=== PATIENT | female | born 1970 | race Caucasian/White ===

== ENCOUNTER 2018-12-21 | Inpatient (IN) | payer MEDICARE ==
[2018-12-21] VITALS (95 sets, daily range): BP systolic 64–134; BP diastolic 40–101; BMI 19.0
[~2018-12-21] VITALS: Ht 167.6 cm; Wt 66.8 kg
--- NOTE | 2018-12-21 01:25 | NUR ---
PATIENT ARRIVED TO ICU ROOM 2302 VIA STRETCHER ACCOMPANIED BY EMS AT 0015. PATIENT TRANSFERRED TO ICU BED, ALL ICU MONITORING EQUIPMENT PLACED PER ICU PROTOCOL. IV LINES CONVERTED TO ONES THAT ARE COMPATIBLE WITH THIS HOSPITAL. CONINUE IVF OF PROPOFOL, VASSOPRESSIN AND LR (SEE IV FLOWSHEET). THIS PATIENT ARRIVED WITH LIPS THAT APPEAR TO BE SWOLLEN AND WHAT ALSO APPEARS TO BE PERIORTITAL EDEMA. AN OBLONG BLACKENED AREA WAS ALSO NOTED TO TOP OF RIGHT UPPER EXTREMITY THAT IS SWOLLEN, WARM TO THE TOUCH AND OBLONG IN NATURE. THIS NURSE IMMEDIATELY CALLED [facility] AND ASKED NURSE, ROBERT FONTAINE IF THE ABNORMALLY LARGE SIZE OF THIS PATIENT'S LIPS AND PERIORBITAL EDEMA WERE PRE-EXISTING/NORMAL FOR THIS PATIENT, TO CONFIRM THAT THIS CHANGE HAD NOT OCCURRED IN ROUTE. MINAL JONES, STATED THAT THIS WAS A PRE-EXISTING CONDITION FOR THIS PATIENT. THIS NURSE ALSO QUESTIONED THE BLACKENED AREA TO THE TOP OF THE RIGHT UPPER EXTREMITY. ROBERT FONTAINE, FROM [facility] ICU STATED THAT THE BLACKENED AREA WAS A PREVIOUS IV SITE. WHEN ASKED BY THIS NURSE IF SHE KNEW THE TYPE OF MEDICATION THAT HAD BEEN PREVIOUSLY INFUSING THROUGH IT, SHE STATED THAT SHE "THOUGHT" THAT IT WAS THE PREVIOUS LEVOPHED INFUSION SITE, PRIOR TO THIS PATIENT RECEIVING A CVL. ADMISSION ASSESSMENT COMPLETE PER NURSING FLOWSHEET.
[2018-12-21] MEDS ORDERED: LOVENOX40 MG/0.4 SC (02:56)
--- NOTE | 2018-12-21 03:00 | NUR ---
PATIENT REPOSITIONED, ORAL CARE PROVIDED, PATIENT CONTINUES TO BE SEDATED, ON VENTILATOR, WHICH IS HOW THIS PATIENT ARRIVED. CONTINUE POC
--- NOTE | 2018-12-21 05:00 | NUR ---
RE-ASSESSMENT COMPLETE, PER NURSING FLOWSHEET, PATIENT REPOSITIONED. REPOSITIONED SOFT FOAM COVERINGS TO PATIENT B/L BUTTOCK OVER OLD SCARS/SMALL SKIN TEAR. MEPILEX OVER COCCYX THAT WAS PLACED UPON THIS PATIENT'S ARRIVAL REMAINS IN PLACE, CONTINOUSLY MONITORING VS. LEVOPHED PREVIOUSLY INTIATED.
[2018-12-21 06:50] LABS: BASOPHILS 0 % (0-2); EOSINOPHILS 0.4 % (0-7); HEMATOCRIT 21.6 % (36.0-48.0); IMMATURE GRANULOCYTES 0.7 % (0-5); LYMPHOCYTES 12.3 % (15-50); MCH 32.9 pg (26.0-34.0); MCHC 33.3 g/dL (31.0-37.0); MCV 98.6 fL (80.0-100.0); MEAN PLATELET VOLUME 9.7 fL (7.4-10.4); MONOCYTES 5.8 % (2-11); NEUTROPHILS 80.8 % (40-80); PLATELET COUNT 148 10x3/uL (130-400); RBC 2.19 10x6/uL (4.00-5.40); RDW 15.2 % (11.5-14.5); WBC 6.7 10x3/uL (4.8-10.8)
[2018-12-21 06:52] LABS: ALBUMIN 1.9 g/dL (3.4-5.0); BILIRUBIN - TOTAL 0.35 mg/dL (0.2-1.3); CALCIUM 8.2 mg/dL (8.5-10.1); CARBON DIOXIDE 17.6 mmol/L (21.0-32.0); HEMOGLOBIN 7.2 g/dL (12-16); MAGNESIUM - SERUM 1.4 mg/dL (1.8-2.4); PROTEIN - SERUM 6.4 g/dL (6.4-8.2)
[2018-12-21 06:55] LABS: PHOSPHOROUS 1.4 mg/dL (2.5-4.9); POTASSIUM - SERUM 2.6 mmol/L (3.5-5.1)
[2018-12-21 06:57] LABS: APTT 30.5 SECONDS (22.8-39.4); INR 1.33 (0.85-1.17); PROTIME 15.9 SECONDS (11.6-15.0)
--- NOTE | 2018-12-21 07:00 | NUR ---
REC'D CARE OF PT. INCONTINENT OF STOOL. BATHED, LINEN CHANGED, AND PERICARE PERFORMED.
--- NOTE | 2018-12-21 08:30 | NUR ---
DR. ENCINAS CALLED, UPDATED TO THIS PATIENT STATUS UPON ARRIVAL, AND CARE RECEIVED, CRITICAL K+ AND PHOSPHOROUS LEVELS GIVEN, NEW ORDERS FOR ELECTROLYTE PROTOCOL REVEIVED, DAY SHIFT RN, ROSEMARIE, NOTIFIED OF NEW ORDER FOR ELECTROLYTE PROTOCOL.
--- NOTE | 2018-12-21 08:43 | NUR ---
PT. CAME TO US WITH A DICKERSON, RIGHT IJ CVL AND INTUBATED SO I DO NOT KNOW THE EXACT DATES THIS WAS DONE.
--- NOTE | 2018-12-21 09:15 | NUR ---
LEVOPHED HUNG AND INFUSING. NOTE NEW CONCENTRATION 8MG/250.
[2018-12-21] MEDS ORDERED: PHENOBARBI20 MG/5 ML (09:21)
[2018-12-21] MEDS ORDERED: PHENOBARBITAL30 MG IV (09:21)
[2018-12-21] MEDS ORDERED: PHENOBARBI20 MG/5 ML IV (09:22)
[2018-12-21] MEDS ORDERED: ZOSYN 3.3753.375 G1 IV (09:23)
[2018-12-21] MEDS ORDERED: PULMICORT0.5 MG/21 INH (09:26)
[2018-12-21] MEDS ORDERED: CEREFOLIN TAB1 TAB IM (09:26)
[2018-12-21] MEDS ORDERED: SOLU-CORTE100 MG/22 IV (09:27)
[2018-12-21] MEDS ORDERED: IPRAT-ALBUT 0.5-3 ML UPD (09:28)
[2018-12-21] MEDS ORDERED: PROTONIX FOR OR40 MG IV (09:29)
[2018-12-21] MEDS ORDERED: VANCOMYCIN 1 GM/1 G1 IV (09:32)
[2018-12-21] MEDS ORDERED: SOLU-MEDRO40 MG/1 M1 IV (09:34)
[2018-12-21] MEDS ORDERED: TYLENOL650 MG RC (09:37)
--- NOTE | 2018-12-21 09:53 | NUR ---
SHOWED DR. HAYNES THE RIGHT LOWER ARM LEVOPHED INFILTRATION SITE AND SHOWED BRIGHT CUTTER. WE RECEIVED THE PT. WITH THIS INJURY.
--- NOTE | 2018-12-21 10:27 | NUR ---
[facility] BY SALES EXPERT HOME THEATER.
--- NOTE | 2018-12-21 10:30 | NUR ---
OGT DROPPED PER DR. ENCINAS ORDER. PLACEMENT VERIFIED WITH SMALL AIR BOLUS AUSCULTATED OVER GASTRIC REGION.
--- NOTE | 2018-12-21 11:11 | NUR ---
VASOPRESSIN AND LEVOPHED BEING TITRATED TO EFFECT.
--- NOTE | 2018-12-21 11:15 | NUR ---
REASSESSMENT COMPLETED PER FLOW SHEET. NO ACUTE CHANGES.
--- NOTE | 2018-12-21 11:54 | NUR ---
LEVOPHED AND VASOPRESSIN BEING TITRTATED TO EFFECT
--- NOTE | 2018-12-21 13:00 | NUR ---
NO VISITORS. REMAINS SEDATED ON VENT.
--- NOTE | 2018-12-21 14:07 | NUR ---
ORDERS REC'D TO DC IVF AND TO ORDER SPUTUM CULTURE.
--- NOTE | 2018-12-21 14:35 | NUR ---
ORDERS REC'D FOR KCL ORAL SUSPENSION 40 MEQ ONE DOSE NOW AND REPEAT DOSE IN 2 HOURS.
--- NOTE | 2018-12-21 14:44 | NUR ---
SPOKE WITH DR. HAYNES ABOUT THIRD DOSE OF KCL DUE NOW PER PROTOCOL FROM K BEING TREATED THIS MORNING. GIVE IN ADDITION TO WHAT HE HAS ORDERED NOW.
--- NOTE | 2018-12-21 16:40 | NUR ---
DR. HAYNES AT BEDSIDE. INPUTTING JOHNNY IN LEFT RADIAL.
--- NOTE | 2018-12-21 17:27 | NUR ---
REMAINS SEDATED ON VENT. BP BEING SUPPORTED WITH LEVOPHED AND VASOPRESSIN. NO ACUTE CHANGES.
--- NOTE | 2018-12-21 19:13 | NUR ---
BEDSIDE SHIFT REPORT GIVEN BY DEPARTING RN. PT LAYING IN BED WITH EYES CLOSED. SEDATED ON VENT. SEE FLOWSHEET FOR DETAILS. ASSESSMENT COMPLETE. SAFETY MEASURES IN PLACE. CBIR.
--- NOTE | 2018-12-21 21:10 | NUR ---
REPOSITIONED FOR COMFORT. ORAL CARE PROVIDED. NO SS OF DISCOMFORT. SAFETY MEASURES IN PLACE. CBIR.
--- NOTE | 2018-12-21 23:08 | NUR ---
REASSESSMENT COMPLETE. PT ASLEEP SHOWING NO SS OF DISTRESS. WILL CONTINUE TO TO TITRATE DRIPS. REPOSITIONED AND ORAL CARE PROVIDED.
[2018-12-22] VITALS (79 sets, daily range): BP systolic 82–129; BP diastolic 48–597; Ht 167.6 cm; Wt 66.8 kg
--- NOTE | 2018-12-22 01:07 | NUR ---
INCONTINENT EPISODE. DARK BROWN LIQUID BM NOTED IN BED. PARTIAL BATH AND LINEN CHANGED. REPOSITIONED AND ORAL CARE PROVIDED.
--- NOTE | 2018-12-22 03:34 | NUR ---
VENT ALARMING FOR OCCLUSION. SUCTIONED LIGHT PINK THICK SECRETIONS. O2 SAT REMAINS ABOVE 95%. REASSESSMENT COMPLETE. NO CHANGES IN PT CONDITION. SAFETY MEASURES IN PLACE. CBIR.
[2018-12-22 04:54] LABS: BASOPHILS 0.2 % (0-2); EOSINOPHILS 4.3 % (0-7); HEMATOCRIT 23.4 % (36.0-48.0); IMMATURE GRANULOCYTES 0.9 % (0-5); LYMPHOCYTES 26.1 % (15-50); MCH 32.8 pg (26.0-34.0); MCHC 34.2 g/dL (31.0-37.0); MEAN PLATELET VOLUME 9.8 fL (7.4-10.4); MONOCYTES 12.3 % (2-11); NEUTROPHILS 56.2 % (40-80); RBC 2.44 10x6/uL (4.00-5.40); RDW 15.1 % (11.5-14.5); WBC 5.5 10x3/uL (4.8-10.8)
[2018-12-22 04:57] LABS: MCV 95.9 fL (80.0-100.0); PLATELET COUNT 179 10x3/uL (130-400)
[2018-12-22 05:13] LABS: ALBUMIN 1.9 g/dL (3.4-5.0); BILIRUBIN - TOTAL 0.42 mg/dL (0.2-1.3); CALCIUM 8.1 mg/dL (8.5-10.1); CARBON DIOXIDE 20.6 mmol/L (21.0-32.0); PROTEIN - SERUM 6.9 g/dL (6.4-8.2)
[2018-12-22 05:19] LABS: ANION GAP 15.7 mmol/L (8-16); POTASSIUM - SERUM 3.3 mmol/L (3.5-5.1)
--- NOTE | 2018-12-22 09:10 | NUR ---
PT TURNED AND MOUTH CARE COMPLETE. LEVOPHED TITRATED TO 9MCG.MIN. VSS.
--- NOTE | 2018-12-22 10:37 | NUR ---
Wound Care spoke with ROBERT Tenorioheavy equipment sales manager at 0937 on 12/21/18 in reference to IV infiltration site on right forearm. Pt was transferred from another hospital to [facility] ICU with the area on right forearm swollen, warm to the touch and discolored black. Pictures were taken of the site. Upon wound care assessment on 12/22/18, it is noted that the area is discolored black, with small open tears revealing pink/pale tissue. The area was marked with black dots upon her admission yesterday. There is no change in the size of the area that has been marked. The entire site measures 22cm x 8cm. It is warm to the touch and edematous. Also noted upon arrival/admission scarring on bilateral buttocks with skin tears. Mepilex is protecting this area. Wound care continues to monitor.
[2018-12-23] VITALS (93 sets, daily range): BP systolic 63–120; BP diastolic 28–80
[2018-12-23 04:40] LABS: BASOPHILS 0.2 % (0-2); EOSINOPHILS 5.8 % (0-7); HEMATOCRIT 24.6 % (36.0-48.0); HEMOGLOBIN 8.4 g/dL (12-16); MCH 32.7 pg (26.0-34.0); MCHC 34.1 g/dL (31.0-37.0); MCV 95.7 fL (80.0-100.0); MEAN PLATELET VOLUME 9.8 fL (7.4-10.4); MONOCYTES 9.1 % (2-11); NEUTROPHILS 64.9 % (40-80); PLATELET COUNT 211 10x3/uL (130-400); RBC 2.57 10x6/uL (4.00-5.40); RDW 14.7 % (11.5-14.5)
[2018-12-23 05:05] LABS: ALBUMIN 1.5 g/dL (3.4-5.0); BILIRUBIN - TOTAL 0.33 mg/dL (0.2-1.3); CALCIUM 7.1 mg/dL (8.5-10.1); CARBON DIOXIDE 22.6 mmol/L (21.0-32.0); CREATININE - SERUM 0.9 mg/dL (0.6-1.3); MAGNESIUM - SERUM 1.1 mg/dL (1.8-2.4); PROTEIN - SERUM 5.9 g/dL (6.4-8.2)
[2018-12-23 05:07] LABS: ANION GAP 13.2 mmol/L (8-16); PHOSPHOROUS 1.4 mg/dL (2.5-4.9); POTASSIUM - SERUM 2.8 mmol/L (3.5-5.1)
--- NOTE | 2018-12-23 09:54 | NUR ---
PT TURNED AND MOUTH CARE COMPLETE. LEVOPHED TITRATED TO 8MCG/MIN. VSS. FAMILY HERE THIS AM AND UPDATE GIVEN.
--- NOTE | 2018-12-23 10:45 | EC ---
PATIENT:BILL OWUSU DATE OF SERVICE: 12/21/18 SEX: F MEDICAL RECORD: [id number] DATE OF : 70 LOCATION:[facility] D.230 AGE OF PATIENT: 48 ADMISSION DATE: 12/21/18 REFERRING PHYSICIAN: INTERPRETING PHYSICIAN: CARITO ROLDAN MD ECHOCARDIOGRAM REPORT ECHO CHARGES 4 ECHO COMPLETE Date: 12/22/18 CLINICAL DIAGNOSIS: SOB ECHOCARDIOGRAPHIC MEASUREMENTS (adult normal given) AC root (d.<3.7cm) 3.1 cm LV Septum d (<1.2 cm> 1.2 cm Valve Excursion 1.5 cm LV Septum (systole) 1.5 cm Left Atria (s.<4.0cm> 2.3 cm LVPW d(<1.2cm) 1.2 cm RV (d.<2.3cm) 2.0 cm LVPW (sytole) 1.5 cm LV diastole(<5.6CM) 3.5 cm MV E-F(>70mm/sec) cm LV systole 2.1 cm LVOT Diameter 1.8 cm MV exc.(>10mm) cm Est.ejection fraction (50-75%) % DOPPLER: LVIT cm/sec A 45.0 cm/sec E 56.0 cm/sec LA cm/sec RVSP 79.3 mmHg LVOT 65.0 cm/sec AOP1/2T m/s Asc. Ao 101 cm/sec RVOT 80.0 cm/sec RA cm/sec PA 92.0 cm/sec AV Gradient Peak 4.1 mmHg AV Mean 2.0 mmHg AV Area 1.3 cm MV Gradient Peak 2.1 mmHg MV Mean 0.87 mmHg MV Area cm COMMENTS: Printing Services Coordinator: 1 LAURA OLIVARES Coronary Care Unit Nurse: 2 Dr. Cho TAPE# PACS Pericardial Effusion Y DATE OF SERVICE: FINDINGS: 1. Left ventricular chamber size is within normal limits. Left ventricular systolic function is normal. Overall ejection fraction is estimated at 50%. 2. Left atrium, right atrium, and right ventricle chamber sizes are within normal limit. 3. Valvular structures have normal structure and motion. 4. Doppler interrogation reveals severe tricuspid regurgitation. No other valvular insufficiency or stenosis. Pulmonary systolic pressure is elevated at ECHOCARDIOGRAM REPORT [id number] BILL OWUSU 80 mmHg. 5. Small pericardial effusion is present. This is not hemodynamically significant. No evidence of left ventricular thrombus. TRANSINT:[id number] Voice Confirmation ID: [id number] DOCUMENT ID: [id number] CARITO ROLDAN MD at 1045 CC: [id number] DICTATION DATE: 12/22/18 1514 FX ARTIST: 12/22/18 [address] [facility] [address] [id number]
--- NOTE | 2018-12-23 18:18 | MORECARE ---
CASE MANAGEMENT DISCHARGE SUMMARY PATIENT: BILL OWUSU UNIT: [id number] ADM DATE: 12/21/18 AGE: 48 : [birth year] SEX: F ROOM/BED: D.2302 AUTHOR: CHANDRIKA CHRISTIANSON PHYSICIAN: REFERRING PHYSICIAN: LISANDRA ENCINAS MD DATE OF SERVICE: 12/23/18 Discharge Plan Patient Name: BILL OWUSU Facility: [facility]:[place] : 1970 Planned Disposition: Anticipated Discharge Date: Discharge Date: Expected LOS: Initial Reviewer: [email or web address] Initial Review Date: 12/23/2018 Generated: 12/23/18 7:18 pm Patient Name: BILL OWUSU Page [phone] at 1818 All edits/amendments must be made on the electronic document DICTATION DATE: 12/23/181817 TRAFFIC ENGINEER: LAZARO 12/23/181817 RPT#: [id number] DC DATE: STATUS: ADM IN [facility] [address] [place] [address] END OF REPORT
--- NOTE | 2018-12-23 18:26 | MORECARE ---
CASE MANAGEMENT DISCHARGE SUMMARY PATIENT: BILL OWUSU UNIT: [id number] ADM DATE: 12/21/18 AGE: 48 : 70 SEX: F ROOM/BED: D.2302 AUTHOR: MEGHAN,DOC PHYSICIAN: REFERRING PHYSICIAN: LISANDRA ENCINAS MD DATE OF SERVICE: 12/23/18 Discharge Plan Patient Name: BILL OWUSU Facility: [facility]:[place] : 1970 Planned Disposition: Anticipated Discharge Date: Discharge Date: Expected LOS: Initial Reviewer: [email or web address] Initial Review Date: 12/23/2018 Generated: 12/23/18 7:26 pm Comments DCP- Discharge Planning Updated by [email or web address]: Echo Suarez on 12/23/18 5:[address] Patient Name: BILL OWUSU Admission Status: Elective Accout number: [id number] Admission Date: 12-21-2018 : 1970 Admission Diagnosis: Attending: LISANDRA ENCINAS Current LOS: 2 Anticipated DC Date: Planned Disposition: Primary Insurance: MEDICARE A & B Discharge Planning Comments: CM attempted to meet with patient regarding discharge planning/ needs. Patient is currently sedated on ventilator. CM contacted sister Radha [phone] with whom patient lives with. Plan is for patient to return to her sisters home upon discharge. Patient's sister provides all patients care. Radha stated that patient has a wheelchair and a hospital bed at her home. Radha denies any discharge needs at this time.CM will continue to follow and assist as needed with discharge planning / needs. Client Manager [employer]: Echo Suarez DCPIA - Discharge Planning Initial Assessment Updated by [email or web address]: Echo Suarez on 12/23/18 6:20 pm * PCP ASHLEY SHAW * Pharmacy [phone] * Preadmission Environment Home with Family * ADLs Total Dependent * Equipment Hospital Bed * Other Equipment WHEELCHAIR * Verbal permission to speak to the caregivers and representatives has been obtained from the patient. N/A * Community resources currently utilized None * Additional services required to return to the preadmission environment? No * Can the patient safely return to the preadmission environment? Yes * Has this patient been hospitalized within the prior 30 days at any hospital? No Last DP export: 12/23/18 5:18 p Patient Name: BILL OWUSU Page [phone] at 1826 All edits/amendments must be made on the electronic document DICTATION DATE: 12/23/181825 [employer] COOK: LAZARO 12/23/181825 RPT#: [id number] DC DATE: STATUS: ADM IN [facility] [address] [place] [address] END OF REPORT
--- NOTE | 2018-12-23 19:26 | NUR ---
BEDSIDE SHIFT REPORT GIVEN BY DEPARTING RN. PT ON VENT. SEDATION RESTARTED PER PROTOCOL. HR ELEVATED IN 100-110'S. LEVOPHED INFUSING TO RT IJ; WILL TITRATE PER PROTOCOLS. FOLLOWS COMMANDS. F/C DRAINAING TO GRAVITY. REPOSITIONED. ORAL CARE PROVIDED. FAMILY ALLOWED AT BEDSIDE D/T TRAVEL NEEDS. ALL QUESTIONS ANSWERED. VERBALIZES UNDERSTANDING. SAFETY MEASURES IN PLACE. CBIR. SEE ASSESSMENT FLOWSHEET FOR FULL DETAILS.
--- NOTE | 2018-12-23 21:19 | NUR ---
REPOSITIONED ANF ORAL CARE PROVIDED. IV TUBINGS CHANGED. NO SS OF DISTRESS NOTED.
[2018-12-24] VITALS (93 sets, daily range): BP systolic 72–171; BP diastolic 42–79
--- NOTE | 2018-12-24 01:18 | NUR ---
LAYING IN BED WATCHING TV. REPOSITIONED. ORAL CARE PROVIDED. NO BM AT THIS TIME.
[2018-12-24 04:27] LABS: BASOPHILS 0.1 % (0-2); EOSINOPHILS 4.9 % (0-7); HEMATOCRIT 23.7 % (36.0-48.0); HEMOGLOBIN 8.1 g/dL (12-16); IMMATURE GRANULOCYTES 1.3 % (0-5); LYMPHOCYTES 14.4 % (15-50); MCH 33.1 pg (26.0-34.0); MCHC 34.2 g/dL (31.0-37.0); MCV 96.7 fL (80.0-100.0); MEAN PLATELET VOLUME 9.8 fL (7.4-10.4); MONOCYTES 8.5 % (2-11); NEUTROPHILS 70.8 % (40-80); RBC 2.45 10x6/uL (4.00-5.40); RDW 14.9 % (11.5-14.5)
[2018-12-24 04:37] LABS: PLATELET COUNT 291 10x3/uL (130-400); WBC 14.5 10x3/uL (4.8-10.8)
[2018-12-24 04:57] LABS: ALBUMIN 1.4 g/dL (3.4-5.0); ALKALINE PHOSPHATASE 87 U/L (46-116); BILIRUBIN - TOTAL 0.22 mg/dL (0.2-1.3); CALCIUM 7.2 mg/dL (8.5-10.1); CARBON DIOXIDE 23.7 mmol/L (21.0-32.0); CHLORIDE - SERUM 113 mmol/L (98-107); CREATININE - SERUM 0.8 mg/dL (0.6-1.3); GLUCOSE 198 mg/dL (74-106); MAGNESIUM - SERUM 1.6 mg/dL (1.8-2.4); PHOSPHOROUS 1.8 mg/dL (2.5-4.9); POTASSIUM - SERUM 3.4 mmol/L (3.5-5.1); PROTEIN - SERUM 6.3 g/dL (6.4-8.2); SODIUM 145 mmol/L (136-145); eGFR NON AFRICAN AMERICAN 81 mL/min (90-120)
[2018-12-24 05:03] LABS: ALT (SGPT) 8 U/L (10-68); CALC OSMOLALITY 291 mosm/kg (275-300); UREA NITROGEN 5 mg/dL (7-18)
--- NOTE | 2018-12-24 07:00 | NUR ---
PATIENT RESTING IN BED SEDATED ON VENTILATOR. PROPOFOL AT 25MCG/KG/MIN. LEVOPHED DRIP AT 15MCG WITH VSS STABLE. WILL CONTINUE TO MONITOR.
--- NOTE | 2018-12-24 09:00 | NUR ---
VSS. WILL CONTINUE TO MONITOR. NO CHANGES.
--- NOTE | 2018-12-24 09:23 | NUR ---
Nutrition follow-up: Pt intubated, sedated Pulmocare infusing @ 30 ml/hr; propofol @ 6.2 ml/hr Vasopressors in use Labs reviewed Wt: 152# sacral stage 1 Noted order for TF to advance to goal rate of 40 ml/hr RDN following.
--- NOTE | 2018-12-24 11:17 | NUR ---
SPOKE TO PATIENTS SISTER NEETA TO OBTAIN CONSENT FOR BRONCHOSCOPY TODAY BY DR. ROMERO. WITNESSED BY ROBERT IGLESIAS.
--- NOTE | 2018-12-24 11:30 | NUR ---
BRONCHOSCOPY PERFORMED BY DR. ROMERO AND RT AT THIS TIME. SMALL AMOUNT OF CLEAR MUCOUS SUCTIONED. VS REMAINED STABLE.
--- NOTE | 2018-12-24 12:30 | NUR ---
BUMPED LEVOPHED DOWN TO 14 MCG/MIN. WILL CONTINUE TO MONITOR BP.
--- NOTE | 2018-12-24 13:00 | NUR ---
CHANGED PULMICARE FEED TUBING OUT. INFUSING AT 40ML/HR WITH FLUSHES PRESCRIBED. PATIENT IS STABLE.
--- NOTE | 2018-12-24 15:00 | NUR ---
TITRATED LEVOPHED TO 13MCG/MIN. BP SYSTOLIC ABOVE 90. MAP ABOVE 65
--- NOTE | 2018-12-24 16:58 | NUR ---
PATIENT HAD SMALL WATER BM. NURSES CLEANED AND CHANGED ALL LINENS. TURNED TO LEFT SIDE.
--- NOTE | 2018-12-24 18:00 | NUR ---
LEVOPHED DRIP INFUSING AT 12.5 MCG/MIN. BP 109/50. WILL CONTINUE TO MONITOR
--- NOTE | 2018-12-24 19:04 | NUR ---
REPORT RECEIVED, CARE ASSUMED. PT IS INTUBATED AND SEDATED ON THE VENT. PT OPENS EYES BUT DID NOT FOLLOW COMMANDS FOR THIS RN. INITIAL ASSESSMENT COMPLETED, SEE FLOWSHEET. NO SIGNS OF ACUTE DISTRESS. WILL CONTINUE TO MONITOR.
--- NOTE | 2018-12-24 21:04 | NUR ---
PT IS RESTING IN BED SEDATED AND INTUBATED ON THE VENT. NO ACUTE CHANGES NOTED. NO SIGNS OF ACUTE DISTRESS. WILL CONTINUE TO MONITOR.
--- NOTE | 2018-12-24 23:05 | NUR ---
REASSESSMENT COMPLETED, SEE FLOWSHEET. PT IS RESTING IN BED SEDATED AND INTUBATED ON THE VENT. NO ACUTE CHANGES NOTED AT THIS TIME. NO SIGNS OF ACUTE DISTRESS. WILL CONTINUE TO MONITOR.
[2018-12-25] VITALS (94 sets, daily range): BP systolic 72–113; BP diastolic 44–86
--- NOTE | 2018-12-25 01:05 | NUR ---
PT IS RESTING IN BED SEDATED AND INTUBATED ON THE VENT. NO ACUTE CHANGES NOTED. NO SIGNS OF ACUTE DISTRESS. WILL CONTINUE TO MONITOR.
--- NOTE | 2018-12-25 03:02 | NUR ---
REASSESSMENT COMPLETED, SEE FLOWSHEET. PT IS RESTING IN BED INTUBATED AND SEDATED ON THE VENT. TITRATING LEVOPHED TO MAINTAIN BP. NO ACUTE CHANGES NOTED. NO SIGNS OF ACUTE DISTRESS AT THIS TIME. WILL CONTINUE TO MONITOR.
--- NOTE | 2018-12-25 05:02 | NUR ---
PT IS RESTING IN BED SEDATED AND INTUBATED. AM LABS DRAWN. NO ACUTE CHANGES NOTED. NO SIGNS OF ACUTE DISTRESS. WILL CONTINUE TO MONITOR.
[2018-12-25 05:38] LABS: ALKALINE PHOSPHATASE 74 U/L (46-116); ALT (SGPT) 6 U/L (10-68); CALC OSMOLALITY 291 mosm/kg (275-300); CALCIUM 7.6 mg/dL (8.5-10.1); CARBON DIOXIDE 23.8 mmol/L (21.0-32.0); CHLORIDE - SERUM 115 mmol/L (98-107); CREATININE - SERUM 0.7 mg/dL (0.6-1.3); GLUCOSE 156 mg/dL (74-106); MAGNESIUM - SERUM 1.8 mg/dL (1.8-2.4); PROTEIN - SERUM 6.3 g/dL (6.4-8.2); SODIUM 147 mmol/L (136-145); UREA NITROGEN 5 mg/dL (7-18); VANCOMYCIN - RANDOM 14.3 ug/mL (10.0-20.0); eGFR NON AFRICAN AMERICAN > 90 mL/min (90-120)
[2018-12-25 05:46] LABS: ALBUMIN 2.1 g/dL (3.4-5.0); PHOSPHOROUS 2.5 mg/dL (2.5-4.9)
[2018-12-25 06:05] LABS: BASOPHILS 0.2 % (0-2); EOSINOPHILS 3.6 % (0-7); HEMATOCRIT 21.4 % (36.0-48.0); IMMATURE GRANULOCYTES 0.7 % (0-5); LYMPHOCYTES 12.9 % (15-50); MCH 33.3 pg (26.0-34.0); MCHC 34.1 g/dL (31.0-37.0); MCV 97.7 fL (80.0-100.0); MEAN PLATELET VOLUME 9.6 fL (7.4-10.4); MONOCYTES 6.7 % (2-11); NEUTROPHILS 75.9 % (40-80); PLATELET COUNT 289 10x3/uL (130-400); RBC 2.19 10x6/uL (4.00-5.40); RDW 15.4 % (11.5-14.5); WBC 17.7 10x3/uL (4.8-10.8)
[2018-12-25 06:42] LABS: HEMOGLOBIN 7.3 g/dL (12-16)
--- NOTE | 2018-12-25 06:45 | NUR ---
RECEIVED CRITICAL H/H RESULTS FROM LAB. ANSHU MUNROE APRN, RECEIVED ORDERS TO TYPE AND CROSS 2 UNITS AND TO WAIT FOR DR WOODWARD TO ROUND TO SEE IF HE WANTED TO TRANSFUSE THEM.
--- NOTE | 2018-12-25 07:30 | NUR ---
REPORT RECEIVED. ASSESSMENT COMPLETE PER FLOW SHEET. VSS. REFER FOR FINDINGS. ORAL ENDOTRACH CARE ADM. WILL CONTINUE TO MONITOR
--- NOTE | 2018-12-25 08:11 | NUR ---
RANDOM WAS 14.3, GIVE A ONE GRAM VANCOMYCIN TODAY. RANDOM IN AM, LAST DOSE WILL BE TOMORROW
--- NOTE | 2018-12-25 11:00 | NUR ---
REASSESSMENT COMPLETE PER FLOW SHEET. VSS. NO NEW CHANGES ORAL ENDOTRACH CARE ADM. PINK FROTHY SPUTUM NOTED. REPOSITIONED UP IN BED ON L SIDE WILL CONTINUE TO MONITOR
--- NOTE | 2018-12-25 12:04 | NUR ---
FAMILY AT BEDSIDE. GIVEN UDPATE.
--- NOTE | 2018-12-25 13:00 | NUR ---
VENT ALARMING ORAL ENDOTRACH CARE ADM. NO NEW FINDINGS NEEDS MET
--- NOTE | 2018-12-25 15:00 | NUR ---
COMPLETE BB LINEN CHANGE ADM. NO NEW FINDINGS WILL CONTINUE TO MONITO R
--- NOTE | 2018-12-25 15:36 | NUR ---
REASSESSMENT COMPLETE PER FLOW SHEET. VSS. NO NEW CHANGES WILL CONTINUE TO MONITOR
--- NOTE | 2018-12-25 17:00 | NUR ---
NO NEW CHANGES PT RESTING COMFORTABLY WILL CONTINUE TO MONITOR
[2018-12-25 18:08] LABS: ACID FAST SMEAR Negative (()); AFB SPECIMEN PROCESSING Concentration (())
--- NOTE | 2018-12-25 19:15 | NUR ---
REPORT REC'D AND CARE ASSUMED, REC'D PT ON VENT VIA 7.5 ETT TAPED @ 22CM LIPLINE, PT WITH HISTORY OF CEREBAL PALSY, OPENS EYES ON VENT WHEN NAME CALLED BUT DOES NOT FOLLOW COMMANDS OR INDICATE SHE IS TRYING TO COMMUNICATE, OGT SECURED TO ETT, PLACEMENT VERIFIED VIA SM AIR BOLUS AUSCULTATED OVER EPIGASTRIM, SEE FLOWSHEET FOR VENT SETTINGS AND IV GTTS, ABDOMEN DISTENDED AND FIRM WITH BS HYPOACTIVE, PULMOCARE INFUSING VIA OGT @ 40CC/HR, RIJTL DRSG CDI, 2+ PITTING EDEMA NOTED TO HANDS, 1+ EDEMA NOTED TO LOWER EXT'S ,PPP, PT REPOSITIONED ONTO RIGHT SIDE SUPPORTED WITH PILLOWS, AIR OVERLAY MATTRESS IN USE, SR UP X 2, BED IN LOW POSITION.
--- NOTE | 2018-12-25 20:30 | NUR ---
SPOKE WITH PT'S SISTER NEETA BY PHONE AFTER PASSWORD VERIFIED, UPDATE PROVIDED AND QUESTIONS ANSWERED.
--- NOTE | 2018-12-25 22:00 | NUR ---
BP STABLE, WILL ATTEMPT TO WEAN LEVOPHED TOLERATED.
--- NOTE | 2018-12-25 23:30 | NUR ---
REASSESSMENT COMPLETED, PT REPOSITIONED UP AND ONTO BACK, ORAL CARE PROVIDED, ROUTINE MEDS GIVEN ORDERED.
[2018-12-26] VITALS (65 sets, daily range): BP systolic 67–123; BP diastolic 44–97
--- NOTE | 2018-12-26 01:30 | NUR ---
PT REPOSITIONED IN BED FOR COMFORT, VSS, CONTINUING TO WEAN LEVOPHED, WILL CONT TO MONITOR CLOSELY FOR CHANGES.
--- NOTE | 2018-12-26 03:15 | NUR ---
REASSESSMENT COMPLETED, FACE WASHED AND ORAL CARE PROVIDED, WEANING LEVOPHED, WILL CONT TO MONITOR FOR CHANGES.
[2018-12-26 04:30] LABS: BASOPHILS 0.1 % (0-2); EOSINOPHILS 1.6 % (0-7); IMMATURE GRANULOCYTES 0.8 % (0-5); LYMPHOCYTES 7.3 % (15-50); MCH 31.3 pg (26.0-34.0); MCHC 34.1 g/dL (31.0-37.0); MEAN PLATELET VOLUME 9.9 fL (7.4-10.4); MONOCYTES 5.4 % (2-11); NEUTROPHILS 84.8 % (40-80); PLATELET COUNT 260 10x3/uL (130-400); RDW 18.1 % (11.5-14.5); WBC 14.2 10x3/uL (4.8-10.8)
[2018-12-26 04:34] LABS: HEMOGLOBIN 9.2 g/dL (12-16); MCV 91.8 fL (80.0-100.0); RBC 2.94 10x6/uL (4.00-5.40)
[2018-12-26 04:46] LABS: ALBUMIN 2.4 g/dL (3.4-5.0); ALKALINE PHOSPHATASE 64 U/L (46-116); ALT (SGPT) 5 U/L (10-68); BILIRUBIN - TOTAL 0.37 mg/dL (0.2-1.3); CALCIUM 7.5 mg/dL (8.5-10.1); CARBON DIOXIDE 24.1 mmol/L (21.0-32.0); CHLORIDE - SERUM 113 mmol/L (98-107); CREATININE - SERUM 0.7 mg/dL (0.6-1.3); GLUCOSE 190 mg/dL (74-106); POTASSIUM - SERUM 4.1 mmol/L (3.5-5.1); PROTEIN - SERUM 6.2 g/dL (6.4-8.2); SODIUM 145 mmol/L (136-145); eGFR NON AFRICAN AMERICAN > 90 mL/min (90-120)
[2018-12-26 04:54] LABS: CALC OSMOLALITY 291 mosm/kg (275-300); UREA NITROGEN 8 mg/dL (7-18)
--- NOTE | 2018-12-26 05:00 | NUR ---
TF LEAKED ONTO SHEET, COMPLETE BATH AND LINEN CHANGE PROVIDED, ORAL CARE PROVIDED, PT INCONTINENT OF SM LOOSE BROWN STOOL, PERICARE GIVEN, PT REPOSITIONED UP IN BED AND ONTO RIGHT SIDE SUPPORTED WITH PILLOWS, RIGHT ARM ELEVATED ON PILLOW, PILLOW BETWEEN KNEES TO CUSHION BONY PROMINENCES, SR UP X 2, WILL MONITOR CLOSELY FOR CHANGES.
--- NOTE | 2018-12-26 06:30 | NUR ---
ROUTINE MEDS GIVEN ORDERED, SBP TRENDING 80'S, LEVOPHED @ 3MCG/MIN, WILL MONITOR CLOSELY FOR CHANGES.
--- NOTE | 2018-12-26 07:29 | NUR ---
VANCOMYCIN 7 DAY COURSE COMPLETE
--- NOTE | 2018-12-26 07:51 | NUR ---
Nutrition follow-up: Intubated, sedated s/p broch Weaning pressors OGT with Pulmocare @ 40 ml/hr Labs reviewed +BM, loose Abdomen distended, firm with hypoactive BS x 4 2+ pitting edema to hands; 1+ pitting edema to lower extremities Steroids stared Wt: 154# Possible trach placement; ?PEG RDN following.
--- NOTE | 2018-12-26 09:00 | NUR ---
LARGE ORAL & ETT SECREATION CONTINUE
--- NOTE | 2018-12-26 13:00 | NUR ---
EYES OPEN LOOKING AROUND ROOM ---MAKING EYE CONTACT WITH NURSE---SEE GRAPHIC
[2018-12-26 13:16] LABS: FUNGUS STAIN Final report (())
--- NOTE | 2018-12-26 17:00 | NUR ---
EYES OPEN LOOKING AROUND ROOM ---SEE GRAPHIC
--- NOTE | 2018-12-26 19:30 | NUR ---
REPORT REC'D AND CARE ASSUMED, REC'D PT ON VENT VIA 7.5 ETT TAPED @ 22CM LIPLINE SEE FLOWSHEET FOR VENT SETTINGS, PT OPENS EYES TO VERBAL STIMULI, TRACKS NURSE AROUND ROOM, DOES NOT FOLLOW COMMANDS, RIGHT NARE NGT WITH PULMOCARE @ 40CC/HR, RIJTL DRSG CDI WITH NS @ 50CC/HR, LEVOPHED @ 7MCG/MIN OR 13.1CC/HR, AND DIPRIVAN @ 20MCG/KG/MIN, LEFT RADIAL JOHNNY TAPED SECURELY NOT CONNECTED FOR READINGS, ABDOMEN DISTENDED AND SEMIFIRM, RIGHT LATERAL ABRASION NOTED, RIGHT FOREARM WITH DARK AREAS AND SCABBED BLISTERS, BORDERS PREVIOUSLY MARKED, DICKERSON PATENT DRAINING CLEAR YELLOW URINE, BILAT SCDS, PPP, AIR OVERLAY MATTRESS IN USE, SR UP X 2, VISIBLE TO NURSES STATION.
--- NOTE | 2018-12-26 21:15 | NUR ---
SPOKE WITH PT'S SISTER NEETA WHO STATES THAT FAMILY WILL BE HERE TOMORROW TO VISIT, UPDATE PROVIDED AND QUESTIONS ANSWERED.
--- NOTE | 2018-12-26 23:00 | NUR ---
REASSESSMENT COMPLETED, ROUTINE MEDS GIVEN ORDERED, BP STABLE ON 7MCG OF LEVOPHED WILL WEAN TOLERATED
[2018-12-27] VITALS (94 sets, daily range): BP systolic 80–125; BP diastolic 50–93
--- NOTE | 2018-12-27 01:00 | NUR ---
ORAL CARE PROVIDED, PT REPOSITIONED UP IN BED FOR COMFORTS, SBP TRENDING 90'S, WILL CONT TO MONITOR CLOSELY FOR CHANGES.
--- NOTE | 2018-12-27 02:30 | NUR ---
BROTHER CALLED FOR UPDATE, UPDATE GIVEN AND QUESTIONS ANSWERED AFTER VERIFYING PASSWORD.
--- NOTE | 2018-12-27 03:30 | NUR ---
REASSESSMENT COMPLETED, RADIOLOGY AT BS FOR AM CXR, PT REPOSITIONED UP IN BED FOR COMFORT, VSS.
--- NOTE | 2018-12-27 05:44 | NUR ---
PT INCONTINENT OF LOOSE BROWN MUCUS LIKE STOOL, PARTIAL BATH AND LINEN CHANGE PROVIDED, PT REPOSITIONED UP IN BED AND ONTO RIGHT SIDE SUPPORTED WITH PILLOWS, TOLERATED WELL, AM LAB DRAWN FROM CVL AND SENT TO LAB, VSS.
[2018-12-27 06:29] LABS: BASOPHILS 0.2 % (0-2); HEMOGLOBIN 9.8 g/dL (12-16); IMMATURE GRANULOCYTES 1.1 % (0-5); LYMPHOCYTES 8.2 % (15-50); MCH 31.4 pg (26.0-34.0); MCHC 33.8 g/dL (31.0-37.0); MCV 92.9 fL (80.0-100.0); MEAN PLATELET VOLUME 10.1 fL (7.4-10.4); MONOCYTES 5.6 % (2-11); NEUTROPHILS 83.9 % (40-80); PLATELET COUNT 340 10x3/uL (130-400); RBC 3.12 10x6/uL (4.00-5.40); RDW 18.1 % (11.5-14.5); WBC 16.1 10x3/uL (4.8-10.8)
[2018-12-27 06:46] LABS: ALBUMIN 2.5 g/dL (3.4-5.0); ALKALINE PHOSPHATASE 81 U/L (46-116); ALT (SGPT) 8 U/L (10-68); BILIRUBIN - TOTAL 0.29 mg/dL (0.2-1.3); CALC OSMOLALITY 291 mosm/kg (275-300); CALCIUM 7.8 mg/dL (8.5-10.1); CARBON DIOXIDE 25.1 mmol/L (21.0-32.0); CHLORIDE - SERUM 112 mmol/L (98-107); CREATININE - SERUM 0.8 mg/dL (0.6-1.3); GLUCOSE 166 mg/dL (74-106); MAGNESIUM - SERUM 1.7 mg/dL (1.8-2.4); PHOSPHOROUS 2.4 mg/dL (2.5-4.9); POTASSIUM - SERUM 3.7 mmol/L (3.5-5.1); PROTEIN - SERUM 6.7 g/dL (6.4-8.2); SODIUM 145 mmol/L (136-145); UREA NITROGEN 9 mg/dL (7-18); eGFR NON AFRICAN AMERICAN 81 mL/min (90-120)
--- NOTE | 2018-12-27 08:02 | NUR ---
NO ACUTE DISTRESS NOTED. PT LYING IN BED ON VENT AT THIS TIME. OPENS EYES WHEN SPOKEN TO. TURNED Q2H. DOES NOT FOLLOW COMMANDS. WILL CONTINUE PLAN OF CARE.
--- NOTE | 2018-12-27 10:02 | NUR ---
5ML RESIDUAL NOTED OT NGT.
--- NOTE | 2018-12-27 12:10 | NUR ---
SPOKE WITH PTS GLORIA SANTACRUZ, UPDATES PROVIDED. ALSO CONCENTS RECEVED FOR TRACH PLACEMEMT. PTS FAMILY STATES THEY ARE PLANNING TO COME SEE PT LATER TODAY. NO ACUTE DISTRESS NOTED. WILL CONTINUE PLAN OF CARE.
--- NOTE | 2018-12-27 13:08 | NUR ---
DR MORTON NOTIFIED OF CONSULT.
--- NOTE | 2018-12-27 14:06 | NUR ---
PER DR WOODWARD, TITRATE LEVOFED TO KEEP MAP ABOVE 55 OR SBP ABOVE 85.
--- NOTE | 2018-12-27 14:11 | NUR ---
PT NOTED TO SMILE AT THIS TIME WHEN THIS NURSE MENTIONED PTS SISTER NEETA TO COME SEE HER. PTS SISTER NEETA CALLED AND NOTIFIED OF THIS. ALSO AT THIS TIME INCONTINENT BOWEL MOVEMENT, LIQUID BROWN, MEDIUM IN SIZE. TOTAL LINEN CHANGE PROVIDED. PT TURNED Q2H. MARCIA CARE AND DICKERSON CARE PROVIDED. NO ACUTE DISTRESS NOTED. LEVOFED TITRATED TO ORDER. WILL CONTINUE PLAN OF CARE.
--- NOTE | 2018-12-27 14:41 | NUR ---
PHONE PLACED TO PTS ROOM SO PT CAN LISTEN TO FAMILY TALK TO HER. NO ACUTE DISTRESS NOTED. PT EYES OPEN WHEN FAMILY WAS SPEAKING WITH HER. WILL CONTINUE PLAN OF CARE.
--- NOTE | 2018-12-27 16:59 | NUR ---
NO ACUTE DISTRESS NOTED. NO CHANGE. PT EYES OPEN. SMILES AT TIMES WHEN SPOKEN TO. DOES NOT FOLLOW COMMANDS. TURNED Q2H. WILL CONTINUE PLAN OF CARE.
--- NOTE | 2018-12-27 18:41 | NUR ---
LARGE LIQUID BOWEL MOVEMENT. TOTAL LINEN CHANGE PROVIDED AND MARCIA CARE AND DICKERSON CARE PROVIDED. NO ACUTE DISTRESS NOTED. WILL CONTINUE PLAN OF CARE.
--- NOTE | 2018-12-27 19:30 | NUR ---
REC'D PT RESTING ON VENT VIA 7.5 ETT TAPED @ 22CM LIPLINE, SEE FLOWSHEET FOR VENT SETTINGS, PT OPENS EYES TO VERBAL STIMULI, TRACKING BUT DOES NOT FOLLOW COMMANDS, RIGHT NARE NGT WITH PULMOCARE @ 40 CC/HR, PLACEMENT VERIFIED VIA SM AIR BOLUS AUSCULTATED OVER EPIGASTRIM, RIJTL DRSG CDI WITH NS @ 50CC/HR AND DIPRIVAN @ 15MCG/KG/MIN, ABD DISTENDED AND SEMIFIRM , DICKERSON PATENT DRAINING YELLOW URINE, RIGHT FOREARM WITH DARK AREA PREVIOUSLY MARKED, BUTTOCKS WITH PINK AREA, DICKERSON PATENT DRAINING YELLOW URINE, BILAT SCDS INTACT, PPP, AIR OVERLAY MATTRESS IN USE, SR UP X 2, VISIBLE TO NURSES STATION.
--- NOTE | 2018-12-27 20:30 | NUR ---
PT REPOSITIONED UP IN BED FOR COMFORT, REPOSITIONED ONTO OPPOSITE SIDE, ORAL CARE PROVIDED. THICK CLEAR SECRETIONS SUCTIONED FROM MOUTH, WILL CONT TO MONITOR.
--- NOTE | 2018-12-27 23:00 | NUR ---
REASSESSMENT COMPLETED, ORAL CARE PROVIDED, CLEAR SECRETIONS REMOVED FROM MOUTH, PT INCONTINENT OF LARGE LOOSE BROWN STOOL, PARTIAL BATHT AND LINEN CHANGE PROVIDED, PT REPOSITIONED UP IN BED AND ONTO RIGHT SIDE SUPPORTED WITH PILLOWS
[2018-12-28] VITALS (27 sets, daily range): BP systolic 90–111; BP diastolic 48–79
--- NOTE | 2018-12-28 01:30 | NUR ---
PT RESTING ON VENT EYES CLOSED, RESP RATE @ 20, BP STABLE, LEVOPHED REMAINS OFF, WILL CONT TO MONITOR CLOSELY FOR CHANGES.
--- NOTE | 2018-12-28 03:45 | NUR ---
RADIOLOGY AT BS FOR AM CXR, PT REPOSITIONED FOR COMFORT, VSS, WILL CONT TO MONITOR.
--- NOTE | 2018-12-28 05:30 | NUR ---
AM LAB DRAWN FROM CVL AND SENT TO LAB, PT REPOSITIONED TO LEFT SIDE SUPPORTED WITH PILLOWS, ORAL CARE PROVIDED, VSS.
[2018-12-28 06:09] LABS: BASOPHILS 0.1 % (0-2); EOSINOPHILS 0.9 % (0-7); HEMATOCRIT 24.6 % (36.0-48.0); HEMOGLOBIN 8.2 g/dL (12-16); LYMPHOCYTES 11.2 % (15-50); MCH 31.1 pg (26.0-34.0); MCHC 33.3 g/dL (31.0-37.0); MCV 93.2 fL (80.0-100.0); MONOCYTES 7.6 % (2-11); NEUTROPHILS 79.2 % (40-80); PLATELET COUNT 311 10x3/uL (130-400); RBC 2.64 10x6/uL (4.00-5.40); RDW 17.8 % (11.5-14.5)
[2018-12-28 06:12] LABS: WBC 10.7 10x3/uL (4.8-10.8)
[2018-12-28 06:29] LABS: CALC OSMOLALITY 290 mosm/kg (275-300); CALCIUM 7.4 mg/dL (8.5-10.1); CARBON DIOXIDE 24.6 mmol/L (21.0-32.0); CHLORIDE - SERUM 112 mmol/L (98-107); CREATININE - SERUM 0.7 mg/dL (0.6-1.3); GLUCOSE 137 mg/dL (74-106); PHOSPHOROUS 2.7 mg/dL (2.5-4.9); POTASSIUM - SERUM 3.9 mmol/L (3.5-5.1); SODIUM 146 mmol/L (136-145); UREA NITROGEN 8 mg/dL (7-18); eGFR NON AFRICAN AMERICAN > 90 mL/min (90-120)
--- NOTE | 2018-12-28 08:17 | NUR ---
INCONTINENT BOWEL MOVEMENT AT THIS TIME. TOTAL LINEN CHANGE PROVIDED. MARCIA CARE AND DICKERSON CARE PROVIDED. PT TURNED Q2H. NO ACUTE DISTRESS NOTED. EYES OPEN. WILL CONTINUE PLAN OF CARE.
--- NOTE | 2018-12-28 09:47 | NUR ---
LYING IN BED ON VENT WITH EYES OPEN AT THIS TIME. NO ACUTE DISTRESS NOTED. PT TURNED Q2H. BED ALARM ON. NO ATTEMPT NOTED AT PULLING AT LINES OR TUBES. WILL CONTINUE PLAN OF CARE.
--- NOTE | 2018-12-28 11:04 | NUR ---
SPOKE WITH FAMILY, UPDATES PROVIDED. RECIEVED TELEPHONE CONSENT BY PTS POA FOR BRONCHOSCOPY BY DR ROMERO. NO ACUTE DISTRESS NOTED. WILL CONTINUE PLAN OF CARE.
--- NOTE | 2018-12-28 13:28 | NUR ---
CONSENTS RECIEVED FOR PEG PLACEMENT. FAMILY HAVE SPOKEN WITH PHYSICIANS, ALL QUESTIONS AND CONCERNS ADDRESSED. NO ACUTE DISTRESS NOTED. WILL CONTINUE PLAN OF CARE.
[2018-12-28 14:19] LABS: HEMATOCRIT 23.7 % (36.0-48.0); HEMOGLOBIN 7.8 g/dL (12-16)
--- NOTE | 2018-12-28 14:38 | NUR ---
PER DR CALDERÓN, NGT WAS PULLED BACK SLIGHTLY AND RESIDUAL WAS ASSESSED FOR ANY BLOOD, NONE SEEN. NGT WAS THEN FLUSHED (AFTER REVERIFICATION OF PLACEMENT) WITH SALINE PER PHYSICIAN AND THEN IMMEDIATLY RESIDUAL PULLED BACK TO ASSESS AGAIN. NO RESIDUAL NOTED AT ALL DURING THESE TIMES EVEN AFTER FLUSHING PERFOMRED. THIS WAS ALL DONE AFTER TUBE FEEDS HAD BEEN OFF FOR AT LEAST 15 MIN. NO ACUTE DISTRESS NOTED. WILL CONTINUE PLAN OF CARE.
--- NOTE | 2018-12-28 15:33 | NUR ---
PER GI PHYSICIAN, GIVE PT 2 U PRBC.
--- NOTE | 2018-12-28 16:00 | NUR ---
PER BLOOD BANK, WILL BE BY SHORTLY TO DRAW BLOOD TO REDO BLOOD BAND THEN WILL HAVE BLOOD READY.
--- NOTE | 2018-12-28 17:18 | NUR ---
NOTED PT HAS ORDERS TO RECIEVE 2 U PRBC TODAY, CALLED BLOOD BANK TO SEE IF READY, THEY STATED THEY STILL HAVE TO DRAW HER BLOOD BEFORE PREPARING BLOOD AND WILL BE BY SHORTLY FOR THAT. WILL ADMIN BLOOD SOON READY BY LAB.
--- NOTE | 2018-12-28 18:04 | NUR ---
CALLED BLOOD BANK TO CHECK THE STATUS ON PTS PRBC TO BE READY, THEY STATED THEY WERE TRYING TO VERIFY IF BLOOD BAND IS STILL ACTIVE VERSUS IF NEEDED TO BE REDRAWN FOR A NEW BLOODBAND NOW SINCE THE CURRENT BLOOD BAND EXPIRES AT SOME TIME TODAY. STATED TO LAB THAT PT NEEDS BLOOD AND IF BAND EXPIRES TODAY THEN LETS REDO TYPE AND SCREEN FOR BLOOD BAND NOW. LAB STATES THEY WILL BE BY SHORTLY TO DRAW BLOOD FOR NEW BLOOD BAND. WILL ADMIN PRBC WHEN READY BY BLOOD BANK. WILL CONTINUE PLAN OF CARE.
--- NOTE | 2018-12-28 18:28 | NUR ---
NEW BLOOD BAND HAS BEEN PLACED BY LAB. WAITING FOR BLOOD TO BE READY.
--- NOTE | 2018-12-28 19:00 | NUR ---
REPORT RECEIVED, CARE ASSUMED. PT LYING IN BED WITH EYES CLOSED. ROUSES TO VERBAL STIMULI, TRACKS THIS RN'S MOVEMENT WITH EYES BUT DOES NOT RESPOND TO QUESTIONS. MECHANICAL VENT INTACT/ 7.5 ETT TUBE SECURE. NG RT NARE. SECURE. MONITORS ON WITH ALARMS SET. SR UP X2. BED IN LOW POSITION.
[2018-12-28 19:02] LABS: HEMOGLOBIN 8.6 g/dL (12-16)
--- NOTE | 2018-12-28 21:00 | NUR ---
RESTING WITH EYES CLOSED, OPENS EYES TO VERBAL STIMULI. SR UP X2. BED IN LOW POSITION.
[2018-12-28 23:06] LABS: CALC OSMOLALITY 287 mosm/kg (275-300); CALCIUM 7.5 mg/dL (8.5-10.1); CARBON DIOXIDE 24.2 mmol/L (21.0-32.0); CHLORIDE - SERUM 111 mmol/L (98-107); CREATININE - SERUM 0.7 mg/dL (0.6-1.3); GLUCOSE 127 mg/dL (74-106); POTASSIUM - SERUM 3.8 mmol/L (3.5-5.1); SODIUM 144 mmol/L (136-145); UREA NITROGEN 9 mg/dL (7-18); eGFR NON AFRICAN AMERICAN > 90 mL/min (90-120)
--- NOTE | 2018-12-28 23:07 | NUR ---
EKG COMPLETED REVEALS NORMAL SINUS RHYTHMN. PT COUGHING, ETT SUCTIONED WITH IN LINE SX CATHETER. JONAS WELL. DIPROVAN INCREASED TO 25MCG/KG/MIN. NO DISTRESS OBSERVED
[2018-12-29] VITALS (17 sets, daily range): BP systolic 104–128; BP diastolic 70–93
--- NOTE | 2018-12-29 01:00 | NUR ---
RESTING WITH EYES CLOSED, OPENS EYES TO VERBAL STIMULI. PT REPOSITIONED. ORAL CARE PERFORMED. BED IN LOW POS. SR UP X 2. NO DISTRESS OBSERVED.
--- NOTE | 2018-12-29 03:00 | NUR ---
RESTING WITH EYES CLOSED, OPENS EYES TO VERBAL STIMULI. SHIFT REASSESSMENT COMPLETED WITH NO CHANGES OBSERVED. SR UP X 2. BED IN LOW POS.
--- NOTE | 2018-12-29 04:50 | NUR ---
FI02 DECREASED TO 40 PER RT/ ABG VALUES
[2018-12-29 05:33] LABS: BASOPHILS 0.3 % (0-2); EOSINOPHILS 0.5 % (0-7); HEMATOCRIT 30.3 % (36.0-48.0); HEMOGLOBIN 10.2 g/dL (12-16); IMMATURE GRANULOCYTES 0.9 % (0-5); LYMPHOCYTES 10.8 % (15-50); MCH 31.6 pg (26.0-34.0); MCHC 33.7 g/dL (31.0-37.0); MCV 93.8 fL (80.0-100.0); MEAN PLATELET VOLUME 10.3 fL (7.4-10.4); MONOCYTES 9.3 % (2-11); NEUTROPHILS 78.2 % (40-80); PLATELET COUNT 328 10x3/uL (130-400); RDW 16.4 % (11.5-14.5); WBC 9.6 10x3/uL (4.8-10.8)
[2018-12-29 05:40] LABS: RBC 3.23 10x6/uL (4.00-5.40)
[2018-12-29 05:55] LABS: INR 1.39 (0.85-1.17); PROTIME 16.5 SECONDS (11.6-15.0)
[2018-12-29 05:58] LABS: ALBUMIN 2.8 g/dL (3.4-5.0); ALKALINE PHOSPHATASE 57 U/L (46-116); ALT (SGPT) 9 U/L (10-68); BILIRUBIN - TOTAL 0.34 mg/dL (0.2-1.3); CALC OSMOLALITY 287 mosm/kg (275-300); CALCIUM 7.5 mg/dL (8.5-10.1); CARBON DIOXIDE 23.4 mmol/L (21.0-32.0); CHLORIDE - SERUM 111 mmol/L (98-107); CREATININE - SERUM 0.7 mg/dL (0.6-1.3); GLUCOSE 134 mg/dL (74-106); MAGNESIUM - SERUM 1.8 mg/dL (1.8-2.4); PHOSPHOROUS 2.5 mg/dL (2.5-4.9); POTASSIUM - SERUM 3.9 mmol/L (3.5-5.1); PROTEIN - SERUM 6.5 g/dL (6.4-8.2); SODIUM 144 mmol/L (136-145); UREA NITROGEN 9 mg/dL (7-18); eGFR NON AFRICAN AMERICAN > 90 mL/min (90-120)
--- NOTE | 2018-12-29 05:59 | NUR ---
ROUTINE ORAL CARE/ DICKERSON CATH CARE GIVEN. JONAS WITHOUT DIFF. SR UP X2 . ROUSES EASILY TO VERBAL STIMULI. TRACKS THIS RN WITH EYES. BED IN LOW POSITION.
--- NOTE | 2018-12-29 07:00 | NUR ---
PATIENT RESTING IN BED SEDATED ON VENTILATOR. VSS. LUNG CARLIN ARE COARSE. SUCTIONED WHITE FROTHY MUCOUS THROUGH ETT. WILL CONTINUE TO MONITOR
[2018-12-29 07:33] LABS: PRE-ALBUMIN 12.6 mg/dL (18.0-35.7)
--- NOTE | 2018-12-29 09:00 | NUR ---
PATIENT RESTING IN BED WITH CALL COTTER IN REACH. NEW BOTTLE OF DRIPRIVAN HUNG. VSS. SUCTIONED ETT AND ORALLY. WILL CONTINUE TO MONITOR
--- NOTE | 2018-12-29 09:15 | NUR ---
Nutrition follow-up: Intubated, sedated Pulmocare @ 40 ml/hr with pt tolerating Diarrhea -> benefiber added to regimen per GI; however, it was not ordered? Labs reviewed SoluMedrol started Wt: 168# Trach/PEG this week. RDN following.
--- NOTE | 2018-12-29 11:00 | NUR ---
OBTAINED CONSENT FROM PATIENTS FAMILY MEMBER NEETA GONZALES FOR BRONCOSCOPY TO BE PERFORMED BY DR. HAYNES.
--- NOTE | 2018-12-29 11:30 | NUR ---
BRONCOSCOPY COMPLETED AT THIS TIME. ABOUT 20 CC OF WHITE MUCOUS REMOVED. NO COMPLICATIONS
--- NOTE | 2018-12-29 13:00 | NUR ---
ASSESSED PATIENTS BOTTOM WITH WOUND CARE NURSE. CHANGED PAD UNDERNEATH THERE WAS CLEAR DRAINAGE COVERING IT-NOT SURE OF THE SOURCE. BUTTOCK WOUND IS TO LEFT CHEEK WITH SKIN TEAR. APPLIED BOUDREAUXS AND TURNED TO RIGHT SIDE. VSS. WILL CONTINUE TO MONITOR.
[2018-12-29 13:50] LABS: HEMATOCRIT 32.4 % (36.0-48.0); HEMOGLOBIN 10.7 g/dL (12-16)
--- NOTE | 2018-12-29 15:31 | NUR ---
PATIENT RESTING IN BED SEDATED ON VENT. NO BM SO FAR. WILL CONTINUE TO MONITOR.
--- NOTE | 2018-12-29 15:51 | NUR ---
REDNESS/EXCORIATION NOTED ON BUTTOCKS. RECOMMEND CALMOSEPTINE CREAM BE APPLIED DAILY AND AFTER ANY INCONTINENT EPISODES. ALSO PT NEEDS TO BE TURNED SIDE TO SIDE EVERY 2 HOURS. WOUND CARE CONTINUES TO MONITOR.
--- NOTE | 2018-12-29 16:00 | NUR ---
CHANGED PADS UNDERNEATH FROM CLEAR DISCHARGE SATURATION. PULLED UP IN BED AND TURNED TO LEFT SIDE. VSS. WILL CONTINUE TO MONITOR
--- NOTE | 2018-12-29 17:00 | NUR ---
CHANGED TUBING FOR PULMICARE TUBE FEED. ALSO CHANGED TUBING FOR PROPOFOL. PATIENT RESTING IN BED WITH STABLE VITAL SIGNS SEDATED ON VENTILATOR. WILL CONTINUE TO MONITOR.
--- NOTE | 2018-12-29 18:30 | NUR ---
PATIENT FAMILY LEFT. EXPLAINED TO THEM PLAN OF CARE. ASSISTED PATIENT ONTO BSC.
--- NOTE | 2018-12-29 19:00 | NUR ---
REPORT RECEIVED WITH CARE ASSUMED. PT RESTING IN BED WITH EYES CLOSED, OPENS EYES TO VERBAL STIMULI. TRACKS THIS RN WITH EYES. TURNED AND POSITIONED ONTO LFT SIDE. MONITORS CONNECTED TO PT WITH ALARMS SET. NGT TO RT NARE INTACT WITH PULMOCARE INFUSING AT 40ML/HR PER PUMP. PLACEMENT CHECKED. APPROX 5ML RESIDUAL RETURNED. MECHANICAL VENT INTACT PER 7.5 ETT. WITH SETTINGS ORDERED. NGT/ETT SECURED. BED IN LOW POSITION. SR UP X2. NEEDS ANTICIPATED AND MET BY STAFF.
[2018-12-29 20:12] LABS: HEMATOCRIT 36.3 % (36.0-48.0); HEMOGLOBIN 12.3 g/dL (12-16)
--- NOTE | 2018-12-29 20:30 | NUR ---
PT HAD LARGE LOOSE INCONTINENT BM. MARCIA CARE GIVEN. STOOL SPECIMEN COLLECTED AND SENT TO LAB.
--- NOTE | 2018-12-29 21:00 | NUR ---
RESTING WITH EYES CLOSED, EYES OPEN TO VERBAL STIMULI. SR UP X 2 . NO DISTRESS OBSERVED.
--- NOTE | 2018-12-29 23:00 | NUR ---
RESTING IN BED. AWAKE AND ALERT. TRACKING THIS RN WITH EYES. REPOSITIONED. SHIFT REASSESSMENT COMPLETED WITH NO CHANGES OBSERVED. BED IN LOW POSITION. SR UP X2.
[2018-12-30] VITALS (24 sets, daily range): BP systolic 91–131; BP diastolic 58–92
--- NOTE | 2018-12-30 | NUR ---
TUBE FEEDING TURNED OFF AND DISCONNECTED FROM PATIENT
--- NOTE | 2018-12-30 01:15 | NUR ---
RESTING IN BED WITH EYES CLOSED, EASILY ROUSED, OPENS EYES TO VERBAL STIMULI. BED IN LOW POSITION. SR UP X2
--- NOTE | 2018-12-30 03:00 | NUR ---
PT RESTING WITH EYES CLOSED, EASILLY ROUSED AND ALERT TO VERBAL STIMULI. PULLED UP IN BED AND REPOSISITIONED ONTO RT SIDE, WITH USE OF PILLOWS FOR POSITIONING. MARCIA CARE GIVEN. CALMOSEPTINE CREAM APPLIED TO BUTTOCKS. SHIFT REASSESSMENT COMPLETED WITH NO CHANGES OBSERVED. HOB UP 45 DEGREES. BED IN LOW POSITION. SR UP X 2.
--- NOTE | 2018-12-30 04:30 | NUR ---
BL SPECIMEN COLLECTED PER IJ. FLUSHED WITH 10ML NS. PATENT/DRSG INTACT
--- NOTE | 2018-12-30 05:00 | NUR ---
AWAKE AND ALERT. MAKING EYE CONTACT WITH THIS RN. LIFTED UP IN BED AND POSITIONED ONTO RT SIDE WITH USE OF PILLOWS FOR POSIIONING. JONAS WITHOUT DIFF. HOB UP 45 DEGREES. NO DISTRESS OBSERVED. SR UP X 2. BED IN LOW POS
[2018-12-30 05:02] LABS: BASOPHILS 0.2 % (0-2); EOSINOPHILS 0.3 % (0-7); HEMATOCRIT 36.8 % (36.0-48.0); HEMOGLOBIN 12.3 g/dL (12-16); LYMPHOCYTES 10.9 % (15-50); MCH 31.3 pg (26.0-34.0); MCHC 33.4 g/dL (31.0-37.0); MCV 93.6 fL (80.0-100.0); MEAN PLATELET VOLUME 10.4 fL (7.4-10.4); MONOCYTES 7.1 % (2-11); NEUTROPHILS 80.5 % (40-80); PLATELET COUNT 384 10x3/uL (130-400); RDW 16.8 % (11.5-14.5); WBC 9.6 10x3/uL (4.8-10.8)
[2018-12-30 05:08] LABS: RBC 3.93 10x6/uL (4.00-5.40)
[2018-12-30 05:10] LABS: INR 1.28 (0.85-1.17); PROTIME 15.4 SECONDS (11.6-15.0)
[2018-12-30 05:27] LABS: ALBUMIN 2.9 g/dL (3.4-5.0); ALKALINE PHOSPHATASE 72 U/L (46-116); BILIRUBIN - TOTAL 0.24 mg/dL (0.2-1.3); CALC OSMOLALITY 287 mosm/kg (275-300); CALCIUM 7.8 mg/dL (8.5-10.1); CARBON DIOXIDE 24.7 mmol/L (21.0-32.0); CHLORIDE - SERUM 110 mmol/L (98-107); CREATINE KINASE 43 UL (21-215); GLUCOSE 129 mg/dL (74-106); POTASSIUM - SERUM 3.8 mmol/L (3.5-5.1); PROTEIN - SERUM 6.5 g/dL (6.4-8.2); SODIUM 144 mmol/L (136-145); UREA NITROGEN 11 mg/dL (7-18)
[2018-12-30 05:37] LABS: ALT (SGPT) 14 U/L (10-68); CREATININE - SERUM 0.5 mg/dL (0.6-1.3); eGFR NON AFRICAN AMERICAN > 90 mL/min (90-120)
--- NOTE | 2018-12-30 07:00 | NUR ---
PATIENT RESTING IN BED SEDATED ON VENTILATOR. PROPOFOL INFUSING AT 35MCG/MIN. NS INFUSING AT 50. LUNG CARLIN COURSE. SUCTIONED ORALLY AND ETT. ALL PULSES PALPABLE. RIGHT FOREARM SKIN BURN FROM LEVOPHED INFILTRATION SHOWS NO IMPROVEMENT. VSS. NSR. HEELS ELEVATED OFF BED WITH SCD'S IN PLACE. TURNED TO RIGHT SIDE. LINENS CLEAN AND DRY. WILL CONTINUE TO MONITOR.
--- NOTE | 2018-12-30 08:15 | NUR ---
TURNED OFF TUBE FEED AND FLUSHED PER DR. MORTON ORDERS.
--- NOTE | 2018-12-30 09:29 | NUR ---
CHANGED PROPOFOL TUBING AND ADMINISTERED IV MEDS. ZEROED CVP-13. OBTAINED ORDER FOR 1 TIME LASIX 20MG PER DR. HAYNES. VSS. WILL CONTINUE TO MONITOR
--- NOTE | 2018-12-30 11:15 | NUR ---
DR. MORTON COMPLETED BED SIDE TRACHEOSTOMY AT THIS TIME. NURSE ADMINISTERED 10MG OF VECURONIUM BEFORE PROCEDURE, BOLUSED WITH 20MCG DIVRIVAN, AND TURNED UP TO 65MCG/MIN AFTER BOLUS DURING PROCEDURE. BP MAINTAINED STABLE. CHANGED CENTRAL LINE DRESSING AFTER TRACHEOSOTOMY AND BEFORE RT PLACED TRACHE TIES ON PATIENT. WILL CONINUE TO MONITOR.
--- NOTE | 2018-12-30 13:00 | NUR ---
PATIENT RESTING IN BED WITH STABLE VS. WILL CONTINUE TO MONITOR. LINENS CLEAN AND DRY.
--- NOTE | 2018-12-30 14:56 | NUR ---
REMOVED ART LINE FROM LEFT RADIAL. HOLD PRESSURE TO SITE FOR 5 MINUTES BEFORE DRESSING WITH GUAZE AND TEGADERM.
--- NOTE | 2018-12-30 17:00 | NUR ---
PATIENT HAD SMALL BM. NURSE AND RT TURNED PATIENT TO CLEAN AND CHANGE PADS AND GOWN. ALSO ADDED GUAZE TO TRACHEOSTOMY SITE DUE TO SATURATION. TURNED TO RIGHT SIDE. VSS. SUCTIONED ORALLY AND TRACHE. WILL CONTINUE TO MONITOR.
[2018-12-30 18:07] LABS: ACID FAST SMEAR Negative (()); AFB SPECIMEN PROCESSING Concentration (())
--- NOTE | 2018-12-30 19:00 | NUR ---
REPORT RECEIVED AND CARE ASSUMED. PT RESTING IN BED WITH EYES OPEN. LOOKS AROUND ROOM WITH EYE MOVEMENT ONLY, NO EYE CONTACT AT THIS TIME. IV FLUIDS/ TUBING LABELED AND CURRENT. INFUSING ORDERED. MONITORS ATTATCHED TO PATIENT WITH ALARMS SET. PT HAD NEW TRACH PLACEMENT TODAY OF A AN 8.0 MM PERC TRACH, INTACT/PATENT/ AND SECURED WITH TRACH TIES. TRACH CONNECTED TO MECHANICAL VENT WITH SETTINGS ORDERED. VS STABLE. TRACH GAUZE SATURATED WITH BLOOD, CLEAN GAUZE APPLIED. NO DISTRESS OBSERVED. NEW TRACH PROTOCOL IN PLACE. BED IN LOW POS. SR UP X2
--- NOTE | 2018-12-30 21:00 | NUR ---
RESTING IN BED, SR UP X2. EYES OPEN TO VERBAL STIMULI. TRACH INTACT/PATENT/SECURE AND CONNECTED TO MECH VENT.NO DISTRESS OBSERVED.
--- NOTE | 2018-12-30 21:00 | NUR ---
CALL RECEIVED FROM PT'S SISTER NEETA, UPDATE GIVEN.
--- NOTE | 2018-12-30 23:30 | NUR ---
PATIENT WITH LARGE AMOUNT OF FRESH BLEEDING OBSERVED AROUND NEW TRACH. GAUZE SATURATED. RT NOTIFIED.
--- NOTE | 2018-12-30 23:40 | NUR ---
RT AT BEDSIDE, TRACH GAUZE REMOVED, CENTRAL LINE DRSG CHANGED, SURGICAL FIBRILLAR USED AROUND TRACH PER RT.
[2018-12-31] VITALS (23 sets, daily range): BP systolic 87–138; BP diastolic 47–87
--- NOTE | 2018-12-31 | NUR ---
NO FURTHER BLEEDING OBSERVED. NO DISTRESS OBSERVED
--- NOTE | 2018-12-31 01:09 | NUR ---
RESTING WITH EYES CLOSED. OPENS EYES TO VERBAL STIMULI. NO FURTHER BLEEDING OBSERVED AROUND TRACH. NO DISTRESS OBSERVED. BED IN LOW POS. SR UP X2
--- NOTE | 2018-12-31 03:10 | NUR ---
LINE PILOT IN TO PERFORM PORTABLE CXR, RT AND THIS RN AT BEDSIDE. BLEEDING AT TRACH SITE CONTINUES. V/S STABLE. 8.0 PERC TRACH INTACT/ PATENT/ SECURED AND CONNECTED TO MECHANICAL VENT WITH SETTINGS ORDERED. RESP EVEN AND UNLABORED. NO DISTRESS OBSERVED. CONTINUE WITH FRESH TRACH PROTOCOL.
[2018-12-31 04:51] LABS: BASOPHILS 0.2 % (0-2); EOSINOPHILS 0.2 % (0-7); IMMATURE GRANULOCYTES 0.6 % (0-5); LYMPHOCYTES 12.7 % (15-50); MCH 31.1 pg (26.0-34.0); MCHC 33.6 g/dL (31.0-37.0); MCV 92.8 fL (80.0-100.0); MEAN PLATELET VOLUME 9.9 fL (7.4-10.4); MONOCYTES 10.8 % (2-11); NEUTROPHILS 75.5 % (40-80); PLATELET COUNT 376 10x3/uL (130-400); RDW 16.7 % (11.5-14.5); WBC 9.7 10x3/uL (4.8-10.8)
[2018-12-31 04:58] LABS: HEMOGLOBIN 9.5 g/dL (12-16); RBC 3.05 10x6/uL (4.00-5.40)
[2018-12-31 04:59] LABS: HEMATOCRIT 28.3 % (36.0-48.0)
[2018-12-31 05:43] LABS: ALBUMIN 2.8 g/dL (3.4-5.0); ALKALINE PHOSPHATASE 46 U/L (46-116); BILIRUBIN - TOTAL 0.28 mg/dL (0.2-1.3); CALC OSMOLALITY 288 mosm/kg (275-300); CALCIUM 7.6 mg/dL (8.5-10.1); CARBON DIOXIDE 22.7 mmol/L (21.0-32.0); CHLORIDE - SERUM 109 mmol/L (98-107); CREATININE - SERUM 0.6 mg/dL (0.6-1.3); GLUCOSE 109 mg/dL (74-106); POTASSIUM - SERUM 3.6 mmol/L (3.5-5.1); PRO BNP 1954 pg/mL (0-125); PROTEIN - SERUM 6.1 g/dL (6.4-8.2); SODIUM 145 mmol/L (136-145); UREA NITROGEN 10 mg/dL (7-18); eGFR NON AFRICAN AMERICAN > 90 mL/min (90-120)
[2018-12-31 05:46] LABS: ALT (SGPT) 9 U/L (10-68)
--- NOTE | 2018-12-31 07:00 | NUR ---
patient's eyes open. large tongue hanging out side of mouth. trach with copious amounts of clots and blood around trach. dressings saturated with dark red blood. bilateral lung sounds equal and congested. copious amount clear secretions from mouth, yellow drainage from left nares. ng tube connected to tube feeding turned off. patel cath patent draining clear yellow urine. abd large distended appearing but soft. heels bridged on pillow. monitor sr. right ij triple lumen central line dressing saturated in blood. infusing with ns at 50 ml hour and diprivan at 45 mcg/kg/min. head of bed elevated 30 degrees.
--- NOTE | 2018-12-31 08:00 | NUR ---
dr. newell notified of trach bleeding and of clots.
--- NOTE | 2018-12-31 09:30 | NUR ---
Ghazala newell nurse here. fibuilar packed around trach x 3 then nunet wrapped around it observation done to make sure no bleeding stopped. towel placed to keep tube straight above the trach. patient tolerated well.
[2018-12-31 10:19] LABS: FUNGUS MYCOLOGY CULTURE Preliminary report (())
--- NOTE | 2018-12-31 11:00 | NUR ---
complete bed bath, new trach ties, new central line dressing. small soft brown stool. 2 open areas noted one on each buttock. no drainage noted. no more bleeding from trach site.
--- NOTE | 2018-12-31 11:06 | NUR ---
Nutrition follow-up: Pulmocare @ 40 ml/hr New trach to vent labs reviewed Wt: 169# +BM RDN following.
--- NOTE | 2018-12-31 13:30 | NUR ---
peg inserted per dr. yañez. minimal bleeding at site.
[2018-12-31 14:36] LABS: HEMATOCRIT 28.1 % (36.0-48.0); HEMOGLOBIN 9.3 g/dL (12-16)
--- NOTE | 2018-12-31 15:00 | NUR ---
ABD DRESSING DRY AND INTACT. MINIMAL DRAINAGE ON DRESSING. PEG CONNECTED TO GRAVITY DRAINAGE. RESTING WELL DIPRIVAN AT 40 MCG/KG/MIN.
[2018-12-31 15:22] LABS: FUNGUS STAIN Final report (())
--- NOTE | 2018-12-31 17:00 | NUR ---
REPOSITIONED IN BED. PULLED UP IN BED. HEAD OF BED ELEVATED. NO BLEEDING AROUND TRACH SITE. NO BLEEDING AROUND PEG SITE. HEELS BRIDGED WITH PILLOW.
--- NOTE | 2018-12-31 17:01 | MORECARE ---
CASE MANAGEMENT DISCHARGE SUMMARY PATIENT: BILL OWUSU UNIT: [id number] ADM DATE: 12/21/18 AGE: 48 : 70 SEX: F ROOM/BED: D.2302 AUTHOR: MEGHAN,DOC PHYSICIAN: REFERRING PHYSICIAN: LISANDRA ENCINAS MD DATE OF SERVICE: 12/31/18 Discharge Plan Patient Name: BILL OWUSU Facility: [facility]:[place] : 1970 Planned Disposition: Anticipated Discharge Date: Discharge Date: Expected LOS: Initial Reviewer: [email or web address] Initial Review Date: 12/23/2018 Generated: 12/31/18 6:01 pm Comments DCP- Discharge Planning Updated by [email or web address]: Echo Suarez on 12/23/18 5:[address] Patient Name: BILL OWUSU Admission Status: Elective Accout number: [id number] Admission Date: 12-21-2018 : 1970 Admission Diagnosis: Attending: LISANDRA ENCINAS Current LOS: 2 Anticipated DC Date: Planned Disposition: Primary Insurance: MEDICARE A & B Discharge Planning Comments: CM attempted to meet with patient regarding discharge planning/ needs. Patient is currently sedated on ventilator. CM contacted sister Radha [phone] with whom patient lives with. Plan is for patient to return to her sisters home upon discharge. Patient's sister provides all patients care. Radha stated that patient has a wheelchair and a hospital bed at her home. Radha denies any discharge needs at this time.CM will continue to follow and assist as needed with discharge planning / needs. [employer]: Echo Suarez DCPIA - Discharge Planning Initial Assessment Updated by [email or web address]: Echo Suarez on 12/23/18 6:20 pm * PCP ASHLEY SHAW * Pharmacy [phone] * Preadmission Environment Home with Family * ADLs Total Dependent * Equipment Hospital Bed * Other Equipment WHEELCHAIR * Verbal permission to speak to the caregivers and representatives has been obtained from the patient. N/A * Community resources currently utilized None * Additional services required to return to the preadmission environment? No * Can the patient safely return to the preadmission environment? Yes * Has this patient been hospitalized within the prior 30 days at any hospital? No Last DP export: 12/23/18 5:26 p Patient Name: BILL OWUSU Page [id number] at 1701 All edits/amendments must be made on the electronic document DICTATION DATE: 12/31/181700 INTERNET MARKETING STRATEGIST: LAZARO 12/31/181700 RPT#: [id number] DC DATE: STATUS: ADM IN [facility] [address] [place] [address] END OF REPORT
--- NOTE | 2018-12-31 18:36 | NUR ---
REPOSITIONED IN BED. NO DISTRESS. ORAL CARE DONE. NO BLEEDING FROM TRACH SITE. NO BLEEDING FROM PEG SITE
--- NOTE | 2018-12-31 19:00 | NUR ---
REPORT RECEIVED CARE ASSUMED INITIAL SHIFT ASSESSMENT COMPLETED SEE FLOWSHEET. PT REMAINS ON DROPLET ISOLATION AND IS CURRENTLY ON MECHANICAL VENTILATION PER TRACH. TOLERATING WELL. THERE IS FIBRILLAR AND NUNET TO TRACH AND THERE IS NO ACTIVE BLEEDING AT THIS TIME. TUBING IS SUPPORTED ON TOWEL. PT IS TOTAL CARE FOR ALL ADLS AND FRESH TRACH PRECAUTIONS BEING OBSERVED. PEG TUBE TO GRAVITY WITH NO DRAINAGE NOTED. BED IN LOW POSITION ALL ALARMS SET, VERIFIED AND AUDIBLE AT NURSES STATION. PT BEING MONITORED PER STANDARD ICU PROTOCOL
--- NOTE | 2018-12-31 19:23 | NUR ---
CALL RECEIVED FROM SISTER SANTACRUZ, CODE WORD VERIFIED. UPDATE GIVEN QUESTIONS ANSWERED
--- NOTE | 2018-12-31 19:28 | NUR ---
DR. CALDERÓN HERE TO SEE PT DISCUSSED CARE. NO NEW ORDERS
--- NOTE | 2018-12-31 21:00 | NUR ---
MEDS GIVEN DOCUMENTED ON JAN. PEG CLAMPED AFTER ADMINISTRAION TO ALLOW ABSORPTION.
--- NOTE | 2018-12-31 23:00 | NUR ---
SHIFT REASSESSMENT COMPLETED SEE FLOWSHEET. NO SIGNIFICANT CHANGES. PT MOVED ONLY MINIMALLY DUE TO FRESH TRACH PROTOCOL AND PT'S TENDENCY FOR BLEEDING
[2019-01-01] VITALS (23 sets, daily range): BP systolic 102–147; BP diastolic 64–93
--- NOTE | 2019-01-01 01:00 | NUR ---
RT AT BEDSIDE DOING TRACH AND ORAL CARE. PT AWAKE AND ALERT ORIENTATION DIFFICULT TO DETERMINE. IVF AND IV LINES ARE ALL CURRENT AND APPROPRIATLY LABELED.
--- NOTE | 2019-01-01 03:00 | NUR ---
SHIFT REASSESSMENT COMPLETED SEE FLOWSHEET. NO SIGNIFICANT CHANGES.
--- NOTE | 2019-01-01 04:45 | NUR ---
BLOOD SPECIMENS SENT FOR ANALYSIS PER ORDERS
[2019-01-01 05:19] LABS: BASOPHILS 0.3 % (0-2); EOSINOPHILS 0.5 % (0-7); HEMATOCRIT 26.1 % (36.0-48.0); HEMOGLOBIN 8.7 g/dL (12-16); IMMATURE GRANULOCYTES 0.5 % (0-5); LYMPHOCYTES 10.6 % (15-50); MCH 31.1 pg (26.0-34.0); MCHC 33.3 g/dL (31.0-37.0); MCV 93.2 fL (80.0-100.0); MEAN PLATELET VOLUME 9.6 fL (7.4-10.4); NEUTROPHILS 82.1 % (40-80); PLATELET COUNT 412 10x3/uL (130-400); RDW 16.9 % (11.5-14.5)
[2019-01-01 05:42] LABS: ALBUMIN 3.3 g/dL (3.4-5.0); ALKALINE PHOSPHATASE 41 U/L (46-116); BILIRUBIN - TOTAL 0.32 mg/dL (0.2-1.3); CALC OSMOLALITY 289 mosm/kg (275-300); CALCIUM 7.9 mg/dL (8.5-10.1); CARBON DIOXIDE 24.3 mmol/L (21.0-32.0); CHLORIDE - SERUM 110 mmol/L (98-107); CREATININE - SERUM 0.6 mg/dL (0.6-1.3); GLUCOSE 99 mg/dL (74-106); POTASSIUM - SERUM 3.2 mmol/L (3.5-5.1); PROTEIN - SERUM 6.5 g/dL (6.4-8.2); SODIUM 147 mmol/L (136-145); UREA NITROGEN 8 mg/dL (7-18); eGFR NON AFRICAN AMERICAN > 90 mL/min (90-120)
[2019-01-01 05:47] LABS: ALT (SGPT) 12 U/L (10-68)
--- NOTE | 2019-01-01 06:11 | NUR ---
ELECTROLYTE PROTOCOL BEING FOLLOWED
--- NOTE | 2019-01-01 07:48 | NUR ---
PT ST 135. TEMP 101.0. ROOM COOLED. TEMPED BATH.
--- NOTE | 2019-01-01 09:40 | NUR ---
Nutrition follow-up/consult: Pt s/p Trach/PEG placement RDN order received for TF recommendations. Chart reviewed RDN will order Jevity 1.2 gregg to begin @ 40 ml/hr with gradual increase to goal rate of 60 ml/hr with 25 ml H2O flush Q hour. RDN following.
--- NOTE | 2019-01-01 10:33 | NUR ---
DIPROVAN OFF, CPAP TRIALS BEGAN. PARTIAL BATH AND LINEN CHANGED. PT AWAKE.
--- NOTE | 2019-01-01 13:52 | NUR ---
BRONCHOSCOPY DONE AT BS BY DR HAYNES. PT JONAS ALMENDAREZ.
--- NOTE | 2019-01-01 16:38 | NUR ---
PT INC OF STOOL. BATHED AND LINENS CHANGED.
--- NOTE | 2019-01-01 19:30 | NUR ---
SHIFT ASSESSMENT COMPLETE, PER NURSING FLOWSHEET, PATIENT REPOSITINED, ORAL CARE PROVIDED, CONTINUE POC
--- NOTE | 2019-01-01 21:00 | NUR ---
PATIENT REPOSITIONED, VSS, NO OTHER NEEDS VOICED OR NOTED AT THIS TIME
[2019-01-01 22:33] LABS: BILIRUBIN - DIRECT 0.13 mg/dL (0.00-0.30); BILIRUBIN - INDIRECT 0.22 mg/dL (0.00-1.00); BILIRUBIN - TOTAL 0.35 mg/dL (0.2-1.3)
--- NOTE | 2019-01-01 23:00 | NUR ---
RE-ASSESSMENT COMPLETE, PER NURSING FLOWSHEET, ORAL CARE PROVIDE, PARTIAL LINEN CHANGE FOR INCONTINENT EPISODE, BARRIER CREAM PROVIDED
[2019-01-02] VITALS (24 sets, daily range): BP systolic 105–163; BP diastolic 70–111
--- NOTE | 2019-01-02 01:00 | NUR ---
PATIENT REPOSITIONED, FOELY CARE PROVIDED, VSS, CONTINUE POC
--- NOTE | 2019-01-02 03:00 | NUR ---
RE-ASSESSMENT COMPLETE, PER NURSING FLOWSHEET, ORAL CARE PROVIDED, PATIENT REPOSITIONED, NO OTHER NEEDS VOICED OR NOTED
--- NOTE | 2019-01-02 05:00 | NUR ---
PATIENT REPOSITIONED, INCONTINENT CHECK, PATIENT IS CURRENTLY C/D, VSS, WILL CONTINUE TO MONITOR
--- NOTE | 2019-01-02 05:04 | NUR ---
CHANGED FIO2 FROM 30% TO 40% AFTER MORNING ABG WITH PO2 OF 54
[2019-01-02 05:27] LABS: ALBUMIN 3.4 g/dL (3.4-5.0); ALKALINE PHOSPHATASE 57 U/L (46-116); ALT (SGPT) 12 U/L (10-68); CALC OSMOLALITY 285 mosm/kg (275-300); CALCIUM 8.1 mg/dL (8.5-10.1); CARBON DIOXIDE 24.8 mmol/L (21.0-32.0); CHLORIDE - SERUM 109 mmol/L (98-107); CREATININE - SERUM 0.7 mg/dL (0.6-1.3); GLUCOSE 93 mg/dL (74-106); POTASSIUM - SERUM 3.6 mmol/L (3.5-5.1); PROTEIN - SERUM 6.8 g/dL (6.4-8.2); SODIUM 144 mmol/L (136-145); UREA NITROGEN 9 mg/dL (7-18); eGFR NON AFRICAN AMERICAN > 90 mL/min (90-120)
--- NOTE | 2019-01-02 08:55 | NUR ---
PT INC OF STOOL. SM SOFT BROWN STOOL. BATHED AND LINENS CHANGED.
--- NOTE | 2019-01-02 09:06 | NUR ---
PT SHAKING WITNESSED BY RT. ASSESSMENT AT PRESENT TIME REVEALS THAT VSS. PTS EYES OPEN BUT IS NOT TRACKING. PAGED DR HOOK. AWAITING CALL BACK.
--- NOTE | 2019-01-02 09:22 | NUR ---
SPOKE TO DR HAYNES RE: SEIZURE.
--- NOTE | 2019-01-02 09:50 | NUR ---
PT SHAKING AGAIN AND IT APPEARS TO BE SEIZURE ACTIVITY. REPORTED TO DR HAYNES. REC'D ORDER FOR VERSED. READ BACK ORDER.
--- NOTE | 2019-01-02 15:55 | NUR ---
PT SHAKING ALL OVER FOR APPROX 1 MIN. ATIVAN GIVEN. NOT SEIZURE LIKE ACTIVITY NOTED AFTER.
--- NOTE | 2019-01-02 19:30 | NUR ---
SHIFT ASSESSMENT COMPLETE, PER NURSING FLOWSHEET. ORAL CARE PROVIDED, PATIENT REPOSITIONED, CONTINUE POC
[2019-01-02 20:52] LABS: APPEARANCE CLEAR (CLEAR); BILIRUBIN NEGATIVE (NEGATIVE); COLOR YELLOW (YELLOW); GLUCOSE NEGATIVE (NEGATIVE); KETONE NEGATIVE (NEGATIVE); NITRITE POSITIVE (NEGATIVE); PROTEIN NEGATIVE (NEGATIVE); UROBILINOGEN NORMAL (NORMAL)
[2019-01-02 20:53] LABS: BACTERIA MANY /hpf (NONE SEEN); EPITHELIAL CELLS OCC /hpf (0-5); RED CELLS - URINE OCC /hpf (0-5); WHITE CELLS - URINE 0-5 /hpf (0-5)
--- NOTE | 2019-01-02 21:00 | NUR ---
PATIENT REPOSITIONED, VSS, CONTINUE POC
--- NOTE | 2019-01-02 23:00 | NUR ---
RE-ASSESSMENT COMPLETE, PER NURSING FLOWSHEET, PATIENT REPOSITIONED, ORAL CARE PROVIDED, INCONTINENCE CHECK, PATIENT IS C/D
[2019-01-03] VITALS (23 sets, daily range): BP systolic 96–146; BP diastolic 57–99
--- NOTE | 2019-01-03 01:00 | NUR ---
PATIENT REPOSITIONED, HEELS BRIDGED, DICKERSON CARE PROVIDED, NO OTHER NEEDS VOICED OR NOTED AT THIS TIME
--- NOTE | 2019-01-03 03:00 | NUR ---
RE-ASSESSMENT COMPLETE, PER NURSING FLOWSHEET, PATIENT REPOSITIONED, HEELS BRIDGED, ORAL CARE PROVIDED
--- NOTE | 2019-01-03 05:00 | NUR ---
PATIENT REPOSITIONED, HEELS BRIDGED, INCONTINENCE CHECK, PATIENT C/D
--- NOTE | 2019-01-03 07:00 | NUR ---
REPORT RECEIVED ASSESSMENT COMPLETE. PT BEING MECHANICALLY VENTILATED VIA TRACH SIZE 8.O TO VENT O2 SAT 98% SEE RESP THERAPY FLOWSHEETS AND CHARTING PT AWAKE ALERT HAS HX OF CP NOT SURE OF PREVIOUS NEURO STATUS. PT HAS VERY LARGE LIPS DRY CRACKING ORAL CARE DONE AND MOISTURIZER APPLIED. E BUSINESS SPECIALIST READING SR NO ECTOPY ALARMS ON AND AUDIBLE. PT HAS WOUND NOTED TO RIGHT HAND TO MID FOREARM, INFORMED IN REPORT THIS AM PT HAD INFILTRATED IV PRIOR TO ADMISSION AT [facility]. DRY SCALY WITH DARKENED DRY SKIN SCAB NOTED EDEMA NO DRAINAGE AT THIS TIME. ELEVATED WITH PILLOWS. VSS NO DISTRESS NOTED AT THIS TIME.
--- NOTE | 2019-01-03 09:00 | NUR ---
DR IVY DALY NEW ORDERS RECEIVED
--- NOTE | 2019-01-03 09:15 | NUR ---
PT PLACED ON CPAP PER RT
--- NOTE | 2019-01-03 11:00 | NUR ---
REASSESSMENT COMPLETED REPOSITIONED PT FOR COMFORT
--- NOTE | 2019-01-03 13:00 | NUR ---
DR MILADYS JONES
[2019-01-03 13:51] LABS: APPEARANCE CLEAR (CLEAR); BILIRUBIN NEGATIVE (NEGATIVE); COLOR STRAW (YELLOW); GLUCOSE NEGATIVE (NEGATIVE); KETONE NEGATIVE (NEGATIVE); NITRITE POSITIVE (NEGATIVE); PROTEIN TRACE mg/dL (NEGATIVE); SPECIFIC GRAVITY 1.005 (1.005-1.020); UROBILINOGEN NORMAL (NORMAL)
[2019-01-03 13:52] LABS: BACTERIA MANY /hpf (NONE SEEN); EPITHELIAL CELLS 0-5 /hpf (0-5); RED CELLS - URINE 0-5 /hpf (0-5)
[2019-01-03 13:53] LABS: AMORPHOUS SEDIMENT <1+ /lpf (NONE SEEN); GRANULAR CAST RARE /lpf (NONE SEEN); HYALINE CAST OCC /lpf (NONE SEEN); MUCUS >1+ /lpf (NONE SEEN)
--- NOTE | 2019-01-03 14:24 | NUR ---
PTS FAMILY AT BEDSIDE CALLED NURSE PT HAVING SEIZURE. SEEN PT EYES ROLLED BACK AND BODY SHAKING ATIVAN IVP PER PRN DR ARSHAD
--- NOTE | 2019-01-03 14:30 | NUR ---
BODY SHAKING LASTED APPROXIMATELY 1-2 MINUTES
--- NOTE | 2019-01-03 14:59 | NUR ---
WILL GIVE FLAGYL WHEN AVAILABLE FROM Rx
--- NOTE | 2019-01-03 15:00 | NUR ---
REASSESSMENT COMPLETED NO FURTHER SEIZURE ACTIVITY NOTED. PT SLEEPY FROM PREVIOUS ATIVAN BUT OPENS EYES TO VERBAL STIMULI, NO DISTRESS NOTED VSS SEE FLOWSHEETS
--- NOTE | 2019-01-03 19:30 | NUR ---
SHIFT ASSESSMENT COMPLETE, PER NURSING FLOWSHEET, ORAL CARE PROVIDED, PATIENT REPOSITIONED, VSS, WILL CONTINUE TO MONTITOR
--- NOTE | 2019-01-03 21:00 | NUR ---
PATIENT REPOSITIONED, HEELS BRIDGED, NO OTHER NEEDS NOTED AT THIS TIME, CONTINUE POC
--- NOTE | 2019-01-03 22:50 | NUR ---
1 MG ATIVAN GIVEN FOR SEIZURE ACTIVITY
--- NOTE | 2019-01-03 23:00 | NUR ---
RE-ASSESSMENT COMPLETE, PER NURSING FLOWSHEET. PATIENT REPOSITIONED, ORAL CARE PROVIDED. VSS
[2019-01-04] VITALS (24 sets, daily range): BP systolic 109–153; BP diastolic 70–98
--- NOTE | 2019-01-04 01:00 | NUR ---
PATIENT REPOSITIONED, [place] CARE PROVIDED, VSS, WILL CONTINUE TO MONITOR
--- NOTE | 2019-01-04 03:00 | NUR ---
RE-ASSESSMENT COMPLETE, PER NURSING FLOWSHEET. PATIENT REPOSITIONED, ORAL CARE PROVIDED, CONTINUE POC
--- NOTE | 2019-01-04 05:00 | NUR ---
COMPLETE LINEN CHANGE, MARCIA CARE PROVIDED, BARRIER CREAM APPLIED, HEELS BRIDGED, PATIENT REPOSITIONED, VSS, WILL CONTINUE TO MONITOR
[2019-01-04 05:40] LABS: BASOPHILS 0.2 % (0-2); EOSINOPHILS 2.7 % (0-7); HEMATOCRIT 24.5 % (36.0-48.0); HEMOGLOBIN 7.9 g/dL (12-16); IMMATURE GRANULOCYTES 0.7 % (0-5); LYMPHOCYTES 11.9 % (15-50); MCH 30.9 pg (26.0-34.0); MCHC 32.2 g/dL (31.0-37.0); MCV 95.7 fL (80.0-100.0); MEAN PLATELET VOLUME 8.9 fL (7.4-10.4); MONOCYTES 8.6 % (2-11); NEUTROPHILS 75.9 % (40-80); PLATELET COUNT 342 10x3/uL (130-400); RBC 2.56 10x6/uL (4.00-5.40); WBC 10.8 10x3/uL (4.8-10.8)
[2019-01-04 06:32] LABS: ALBUMIN 3.9 g/dL (3.4-5.0); ALKALINE PHOSPHATASE 59 U/L (46-116); ALT (SGPT) 13 U/L (10-68); CALC OSMOLALITY 285 mosm/kg (275-300); CALCIUM 8.2 mg/dL (8.5-10.1); CARBON DIOXIDE 25.8 mmol/L (21.0-32.0); CHLORIDE - SERUM 107 mmol/L (98-107); CREATININE - SERUM 0.6 mg/dL (0.6-1.3); GLUCOSE 124 mg/dL (74-106); POTASSIUM - SERUM 3.2 mmol/L (3.5-5.1); PROTEIN - SERUM 7.1 g/dL (6.4-8.2); SODIUM 144 mmol/L (136-145); UREA NITROGEN 7 mg/dL (7-18); eGFR NON AFRICAN AMERICAN > 90 mL/min (90-120)
--- NOTE | 2019-01-04 07:00 | NUR ---
REPORT RECEIVED ASSESSMENT COMPLETE. TRACH NOTED TO VENT SEE RESP THERAPIST FOR NOTES AND SETTINGS. ORAL CARE DONE SUCTIONED VIA TRACH AND ORALLY PINK TINGED SECRETIONS THICK FROM TRACH, CLEAR ORAL SECRETIONS. PT EYES OPEN FOLLOWS/TRACKS RN WITH EYES, EDEMA TO EXTREMITIES. RIGHT FOREARM WITH WOUND FROM FINGERS TO HAND UP TO FOREARM FROM PREVIOUS INFILTRATED IV NO DRAINAGE OR ODOR NOTED APPEARS SCABBED OVER. PROSPECTING OBSERVER READING SR NO ECTOPY AT THIS TIME ALARMS ON AND AUDIBLE. BED LOW POSITION SIDE RAILS UP X3 FOR SAFETY.
[2019-01-04 07:42] LABS: MAGNESIUM - SERUM 1.7 mg/dL (1.8-2.4); PHOSPHOROUS 2.3 mg/dL (2.5-4.9)
--- NOTE | 2019-01-04 08:30 | NUR ---
DR IVY JONES
--- NOTE | 2019-01-04 11:00 | NUR ---
REASSESSMENT COMPLETE ORAL CARE AND REPOSITIONED PT FOR COMFORT
--- NOTE | 2019-01-04 12:00 | NUR ---
DR WOODWARD ROUNDING. NEW ORDERS NOTED HE IS IMFORMED OF POSITIVE BLOOD CULTURES AND THAT VASCULAR ACCESS NURSE CONSULT IN PLACE. UNABLE TO GET PIV ACCESS
--- NOTE | 2019-01-04 13:00 | NUR ---
SMALL LIQUID BROWN STOOL BED BATH AND LINEN CHANGE. PT ALERT AND SMILING VSS AT THIS TIME PT REPOSITIONED FOR COMFORT
--- NOTE | 2019-01-04 15:00 | NUR ---
REASSESSMENT ORAL CARE AND REPOSITION. PT ALERT AND SMILING
--- NOTE | 2019-01-04 19:30 | NUR ---
SHIFT ASSESSMENT COMPLETE, PER NURSING FLOWSHEET, ORAL CARE PROVIDED, PATIENT REPOSITIONED
--- NOTE | 2019-01-04 21:00 | NUR ---
PATIENT REPOSITIONED, INCONTINENCE CHECK, PATIENT IS C/D
--- NOTE | 2019-01-04 23:00 | NUR ---
RE-ASSESSMENT COMPLETE PER NURSING FLOWSHEET, ORAL CARE PROVIDED, PATIENT REPOSITONED, CONTINUE POC
[2019-01-05] VITALS (23 sets, daily range): BP systolic 111–165; BP diastolic 68–99
--- NOTE | 2019-01-05 01:00 | NUR ---
DICKERSON CARE PROVIDED, PATIENT REPOSITONED, PATIENT IS CURRENTLY C/D
--- NOTE | 2019-01-05 03:00 | NUR ---
RE-ASSESSMENT COMPLETE, PER NURSING FLOWSHEET, PATIENT REPOSITIONED, ORAL CARE PROVIDED, CONTINUE POC
--- NOTE | 2019-01-05 05:00 | NUR ---
PATIENT REPOSITIONED, VSS, WILL CONTINUE TO MONITOR
[2019-01-05 05:46] LABS: BASOPHILS 0.3 % (0-2); EOSINOPHILS 3.9 % (0-7); HEMATOCRIT 28.4 % (36.0-48.0); HEMOGLOBIN 9.3 g/dL (12-16); IMMATURE GRANULOCYTES 0.9 % (0-5); LYMPHOCYTES 16.8 % (15-50); MCH 30.1 pg (26.0-34.0); MCHC 32.7 g/dL (31.0-37.0); MEAN PLATELET VOLUME 9.4 fL (7.4-10.4); MONOCYTES 11.6 % (2-11); NEUTROPHILS 66.5 % (40-80); PLATELET COUNT 375 10x3/uL (130-400); WBC 11.5 10x3/uL (4.8-10.8)
[2019-01-05 05:49] LABS: RBC 3.09 10x6/uL (4.00-5.40)
[2019-01-05 05:50] LABS: MCV 91.9 fL (80.0-100.0)
[2019-01-05 06:06] LABS: ALBUMIN 3.6 g/dL (3.4-5.0); ALKALINE PHOSPHATASE 60 U/L (46-116); ALT (SGPT) 13 U/L (10-68); CALC OSMOLALITY 282 mosm/kg (275-300); CALCIUM 8.2 mg/dL (8.5-10.1); CARBON DIOXIDE 26.8 mmol/L (21.0-32.0); CHLORIDE - SERUM 105 mmol/L (98-107); CREATININE - SERUM 0.6 mg/dL (0.6-1.3); GLUCOSE 118 mg/dL (74-106); MAGNESIUM - SERUM 1.5 mg/dL (1.8-2.4); PHOSPHOROUS 2.1 mg/dL (2.5-4.9); POTASSIUM - SERUM 3.4 mmol/L (3.5-5.1); PROTEIN - SERUM 7.1 g/dL (6.4-8.2); SODIUM 142 mmol/L (136-145); eGFR NON AFRICAN AMERICAN > 90 mL/min (90-120)
[2019-01-05 06:09] LABS: UREA NITROGEN 9 mg/dL (7-18)
--- NOTE | 2019-01-05 08:00 | NUR ---
REPORT RECEIVED ASSESSMENT COMPLETE PT ON ENERGY TRADING ANALYST READING SR NO ECTOPY AT THIS TIME ALARMS ON AND AUDIBLE. TRACH TO VENT SEE RESP FOR VENT SETTINGS. O2 SAT 97% SUCTIONED ORALLY AND VIA TRACH MODERATE AMOUNT OF THICK LANG SECRETIONS. COMPLETE BED BATH AND LINEN CHANGE PT HAD MODERATE SIZE LIQUID BROWN STOOL, BOTTOM EXCORIATED AND RED 2 STAGE BOUDREAX BUTT PASTE APPLIEED. PT HAS DRIED SCAB AND DARKENED SKIN WITH CRACKING DRY SCAB FINGERTIP TO FOREARM OF RIGHT ARM FROM PREVIOUS INFILTRATED IV. PT REPOSITIONED FOR COMFORT SIDE RAILS UP X3 AND BED IN LOW POSITION
--- NOTE | 2019-01-05 09:17 | NUR ---
Nutrition follow-up: Pt with trach to vent; PEG tube Awake, alert Jevity 1.2 gregg infusing @ goal rate of 60 ml/hr with 24 ml H2O flush Q hour Labs reviewed Pt with edema all over +BM, liquid seizure activity noted Wt: 157# Pt tolerating TF at goal rate RDN following.
--- NOTE | 2019-01-05 10:45 | NUR ---
TASNEEM COLLINS VASCULAR NURSE HERE TO PLACE PICC LINE.
--- NOTE | 2019-01-05 11:00 | NUR ---
DWORKIN HERE ROUNDING NEW ORDERS NOTED
--- NOTE | 2019-01-05 11:15 | NUR ---
DR ROMERO HERE FOR ROUNDS
--- NOTE | 2019-01-05 11:35 | NUR ---
TASNEEM COLLINS STATED LEFT UPPER ARM PICC LINE OK TO USE
--- NOTE | 2019-01-05 12:00 | NUR ---
ORAL CARE AND REPOSITIONED FOR COMFORT
[2019-01-05 13:13] LABS: FUNGUS CULTURE RESULT 1 Candida albicans (()); FUNGUS MYCOLOGY CULTURE Preliminary report (()); FUNGUS STAIN RESULT 1 Hyphae observed (())
--- NOTE | 2019-01-05 15:00 | NUR ---
READMISSION COMPLETE ORAL CARE AND PT REPOSITIONED FOR COMFORT
--- NOTE | 2019-01-05 16:00 | NUR ---
RIGHT IJ CENTRAL IV REMOVED NO BLEEDING GAUZE AND TAPE DRESSING APPLIED
--- NOTE | 2019-01-05 18:35 | NUR ---
PT HAD SMALL LIQUID BROWN BM COMPLETE LINEN CHANGE AND PARTIAL BED BATH GIVEN.
--- NOTE | 2019-01-05 19:00 | NUR ---
RECEIVED PT LYING IN BED, HOB UP 45 DEGREES. AWAKE AND ALERT. NON VERBAL. ORIENTATION TO TIME/DATE/PLACE UNABLE TO DETERMINE BUT SMILES AT MENTION OF SISTER Radha's NAME. TRACKS THIS RN AROUND ROOM WITH EYES. 8.0 TRACH INTACT/SECURE/ PATENT AND CONNECTED TO MECHANICAL VENT WITH SETTINGS ORDERED. RESP EVEN AND UNLABORED. GT INTACT/PATENT WITH JEVITY 1.2 INFUSING AT 60ML/HR PER PUMP. GT PLACEMENT VERIFIED, APROX 10ML RESIDUAL OBTAINED. PREVIOUS INFILTRATION SITE TO RFA SCABBED/SCALY WITH DARK DISCOLORATION, EDGES CONTINUE MARKED, NOT PROGRESSED OUTSIDE OF ORIGINAL MARKINGS. IV FLUIDS/TUBING DATED/LABELED AND CURRENT. MONITORS CONNECTED TO PATIENT WITH ALARMS SET. BED IN LOW POS. SR UP X2
--- NOTE | 2019-01-05 19:06 | MORECARE ---
CASE MANAGEMENT DISCHARGE SUMMARY PATIENT: BILL OWUSU UNIT: [id number] ADM DATE: 12/21/18 AGE: 48 : 70 SEX: F ROOM/BED: D.2302 AUTHOR: MEGHAN,DOC PHYSICIAN: REFERRING PHYSICIAN: LISANDRA ENCINAS MD DATE OF SERVICE: 01/05/19 Discharge Plan Patient Name: BILL OWUSU Facility: [facility]:[place] : 1970 Planned Disposition: Anticipated Discharge Date: Discharge Date: Expected LOS: Initial Reviewer: [email or web address] Initial Review Date: 12/23/2018 Generated: 01/05/19 8:06 pm Comments DCP- Discharge Planning Updated by [email or web address]: Echo Suarez on 01/05/19 6:[address] CM spoke with Brandi at [facility] in [place] regarding vent bed availability. She stated that they currently didn't have any availability that it would possibly early next week before bed becomes available. CM explained that the patient lived in [place], [place]. [facility] gave CM information on LTACH facility in [facility]. Post Acute Care [facility] [phone]. fax [phone]. CM called and spoke with Eden at facility and she stated they did have bed availability. CM faxed records after obtaining consent from family. CM will continue to follow and assist as needed with discharge planning / needs. DCP- Discharge Planning Updated by [email or web address]: Echo Suarez on 12/23/18 5:[address] Patient Name: BILL OWUSU Admission Status: Elective Accout number: [id number] Admission Date: 12-21-2018 : 1970 Admission Diagnosis: Attending: LISANDRA ENCINAS Current LOS: 2 Anticipated DC Date: Planned Disposition: Primary Insurance: MEDICARE A & B Discharge Planning Comments: CM attempted to meet with patient regarding discharge planning/ needs. Patient is currently sedated on ventilator. CM contacted sister Radha [phone] with whom patient lives with. Plan is for patient to return to her sisters home upon discharge. Patient's sister provides all patients care. Radha stated that patient has a wheelchair and a hospital bed at her home. Radha denies any discharge needs at this time.CM will continue to follow and assist as needed with discharge planning / needs. Industrial Robotics Mechanic: Echo ROSENTHAL - Discharge Planning Initial Assessment Updated by [email or web address]: Echo Suarez on 12/23/18 6:20 pm * PCP ASHLEY SHAW * Pharmacy [phone] * Preadmission Environment Home with Family * ADLs Total Dependent * Equipment Hospital Bed * Other Equipment WHEELCHAIR * Verbal permission to speak to the caregivers and representatives has been obtained from the patient. N/A * Community resources currently utilized None * Additional services required to return to the preadmission environment? No * Can the patient safely return to the preadmission environment? Yes * Has this patient been hospitalized within the prior 30 days at any hospital? No Last DP export: 12/31/18 4:01 p Patient Name: BILL OWUSU Page [id number] at 1906 All edits/amendments must be made on the electronic document DICTATION DATE: 01/05/191905 ELECTRIC STOVE MECHANIC: LAZARO 01/05/191905 RPT#: [id number] DC DATE: STATUS: ADM IN [facility] [address] [place] [address] END OF REPORT
--- NOTE | 2019-01-05 19:37 | MORECARE ---
CASE MANAGEMENT DISCHARGE SUMMARY PATIENT: BILL OWUSU UNIT: [id number] ADM DATE: 12/21/18 AGE: 48 : 70 SEX: F ROOM/BED: D.2302 AUTHOR: MEGHAN,DOC PHYSICIAN: REFERRING PHYSICIAN: LISANDRA ENCINAS MD DATE OF SERVICE: 01/05/19 Discharge Plan Patient Name: BILL OWUSU Facility: [facility]:[place] : 1970 Planned Disposition: Anticipated Discharge Date: Discharge Date: Expected LOS: Initial Reviewer: [email or web address] Initial Review Date: 12/23/2018 Generated: 01/05/19 8:37 pm Comments DCP- Discharge Planning Updated by [email or web address]: Echo Suarez on 01/05/19 6:[address] CM spoke with Brandi at [facility] in [place] regarding vent bed availability. She stated that they currently didn't have any availability that it would possibly early next week before bed becomes available. CM explained that the patient lived in [place], [place]. [facility] gave CM information on LTACH facility in [facility]. Post Acute Care [facility] [phone]. fax [phone]. CM called and spoke with Eden at facility and she stated they did have bed availability. CM faxed records after obtaining consent from family. CM will continue to follow and assist as needed with discharge planning / needs. DCP- Discharge Planning Updated by [email or web address]: Echo Suarez on 12/23/18 5:[address] Patient Name: BILL OWUSU Admission Status: Elective Accout number: [id number] Admission Date: 12-21-2018 : 1970 Admission Diagnosis: Attending: LISANDRA ENCINAS Current LOS: 2 Anticipated DC Date: Planned Disposition: Primary Insurance: MEDICARE A & B Discharge Planning Comments: CM attempted to meet with patient regarding discharge planning/ needs. Patient is currently sedated on ventilator. CM contacted sister Radha [phone] with whom patient lives with. Plan is for patient to return to her sisters home upon discharge. Patient's sister provides all patients care. Radha stated that patient has a wheelchair and a hospital bed at her home. Radha denies any discharge needs at this time.CM will continue to follow and assist as needed with discharge planning / needs. Marketing Operations Intern: Echo Suarez DCPIA - Discharge Planning Initial Assessment Updated by [email or web address]: Echo Suarez on 12/23/18 6:20 pm * PCP ASHLEY SHAW * Pharmacy [phone] * Preadmission Environment Home with Family * ADLs Total Dependent * Equipment Hospital Bed * Other Equipment WHEELCHAIR * Verbal permission to speak to the caregivers and representatives has been obtained from the patient. N/A * Community resources currently utilized None * Additional services required to return to the preadmission environment? No * Can the patient safely return to the preadmission environment? Yes * Has this patient been hospitalized within the prior 30 days at any hospital? No External Providers External Provider: OTHER-OTHER Next Contact Date: Service Request Date: Service Type: Resolution: Reviewer: Comments: Last DP export: 01/05/19 6:06 p Patient Name: BILL OWUSU Page [phone] at 1937 All edits/amendments must be made on the electronic document DICTATION DATE: 01/05/191936 AMERICANIZATION TEACHER: LAZARO 01/05/191936 RPT#: [id number] DC DATE: STATUS: ADM IN [facility] [address] [place] [address] END OF REPORT
--- NOTE | 2019-01-05 20:45 | NUR ---
CALL RECEIVED FROM NEETA YORK, PASSWORD VERIFIED. UPDATE GIVEN QUESTIONS ANSWERED
--- NOTE | 2019-01-05 21:00 | NUR ---
AWAKE AND ALERT. MAKES EYE CONTACT. NO DISTRESS OBSERVED. BED IN LOW POS. SR UP X2
--- NOTE | 2019-01-05 23:00 | NUR ---
AWAKE AND ALERT. SMILES WHEN SISTERS NAME MENTIONED. ORAL CARE GIVEN. TURNED ONTO SIDE, 2 STAGE 2 PRESSURE AREAS OBSERVED, 1 APPROX 2CM DIAMETER TO RT BUTTOCK, 1 APPROX 3CM DIAMETER LFT BUTTOCK. CREAM APPLIED. DICKERSON CARE GIVEN. NO SIGNS OF PAIN OBSERVED AT PRESENT. NO CHANGES SINCE PREVIOUS ASSESSMENT. BED IN LOW POS. SR UP X2. NEEDS ANTIPATED AND MET BY STAFF DUE TO COGNITIVDE IMPAIRMENT.
[2019-01-06] VITALS (24 sets, daily range): BP systolic 95–127; BP diastolic 62–89
--- NOTE | 2019-01-06 01:00 | NUR ---
INTO PATIENTS ROOM, AWAKE AND ALERT. TURNED AND REPOSITIONED. ORAL CARE GIVEN. NO SIGNS OF PAIN OBSERVED AT PRESENT. NO DISTRESS OBSERVED. SR UP X2. HOB UP 45 DEGREES.
--- NOTE | 2019-01-06 03:00 | NUR ---
AWAKE AND ALERT. TURNED AND REPOSITIONED. NO SIGNS OF PAIN OBSERVED AT PRESENT. NO CHANGES OBSERVED FROM PREVIOUS ASSESSMENT. SR UP X 2 BED IN LOW POS.
[2019-01-06 05:00] LABS: BASOPHILS 0.3 % (0-2); EOSINOPHILS 4.8 % (0-7); HEMATOCRIT 28.3 % (36.0-48.0); HEMOGLOBIN 9.2 g/dL (12-16); IMMATURE GRANULOCYTES 0.7 % (0-5); MCH 30.2 pg (26.0-34.0); MCHC 32.5 g/dL (31.0-37.0); MCV 92.8 fL (80.0-100.0); MEAN PLATELET VOLUME 9.7 fL (7.4-10.4); MONOCYTES 14.5 % (2-11); NEUTROPHILS 63.7 % (40-80); PLATELET COUNT 387 10x3/uL (130-400); RBC 3.05 10x6/uL (4.00-5.40); RDW 18.7 % (11.5-14.5); WBC 12.2 10x3/uL (4.8-10.8)
--- NOTE | 2019-01-06 05:00 | NUR ---
AWAKE AND ALERT. BED BATH GIVEN. POSITION CHANGED. GAULDING TO BILAT GROIN OBSERVED, APPLIED CALMOSEPINE CREAM TO AFFECTED AREAS. NO DISTRESS OBSERVED. SR UP X2. MONITORS CONNECTED TO PATIENT WITH ALARMS SET. IV TUBING/FLUIDS DATED LABELED AND CURRENT. NO SIGNS OF PAIN OBSERVED AT PRESENT. HOB UP 45 DEGREES.
--- NOTE | 2019-01-06 05:45 | NUR ---
PATIENT CONTINUES IN DROPLET ISOLATION WITH ALL PRECAUTIONS OBSERVED THIS SHIFT. VAP PROTOCOL OBSERVED. ALL ADLS PERFORMED/ NEEDS ANTICIPATED AND MET PER THIS RN.
[2019-01-06 05:46] LABS: CALC OSMOLALITY 284 mosm/kg (275-300); CALCIUM 7.9 mg/dL (8.5-10.1); CARBON DIOXIDE 25.6 mmol/L (21.0-32.0); CHLORIDE - SERUM 107 mmol/L (98-107); CREATININE - SERUM 0.6 mg/dL (0.6-1.3); GLUCOSE 113 mg/dL (74-106); MAGNESIUM - SERUM 1.4 mg/dL (1.8-2.4); PHOSPHOROUS 2.2 mg/dL (2.5-4.9); POTASSIUM - SERUM 3.6 mmol/L (3.5-5.1); SODIUM 143 mmol/L (136-145); UREA NITROGEN 10 mg/dL (7-18); eGFR NON AFRICAN AMERICAN > 90 mL/min (90-120)
--- NOTE | 2019-01-06 18:08 | NUR ---
0700 AWAKE AND ALERT AND CONFUSED ASSESSMENT COMPLETE
--- NOTE | 2019-01-06 18:09 | NUR ---
0900 PEG TUBE FEEDING ONGOING CONTINIOUS
--- NOTE | 2019-01-06 18:12 | NUR ---
1100 WATCHING TV WITH NO DISTRESS NOTED
--- NOTE | 2019-01-06 18:13 | NUR ---
1300 TOLERATING VENT WELL
--- NOTE | 2019-01-06 18:15 | NUR ---
1500 CONTINUE TO TURN EVERY 2 AMRIK SPOKE WITH ELEMENTARY SCHOOL TEACHER, SISTER
--- NOTE | 2019-01-06 18:19 | NUR ---
1700 SMILING AND NO SIGNS OF DISTRESS
--- NOTE | 2019-01-06 19:00 | NUR ---
REPORT RECEIVED AND CARE ASSUMED. RECEIVED PATIENT LYING IN BED AWAKE AND ALERT. TRACKS THIS RN WITH EYES, MAKES EYE CONTACT. 8.0 TRACH INTACT/SECURE/PATENT AND CONNECTED TO [facility] VENT WITH SETTINGS ORDERED. RESP EVEN AND UNLABORED. GT INTACT/SECURE/PATENT, PLACEMENT VERIFIED, AND RESIDUAL CHECKED, APPROX 5ML RESIDUAL OBTAINED. HOB UP 45 DEGREES. VAP PROTOCOL OBSERVED. CONTINUES ON DROPLET ISOLATION WITH PRECAUTIONS OBSERVED. SR UP X2. BED IN LOW POS. MONITORS CONNECTED TO PT WITH ALARMS ON. IV FLUID/TUBING LABELED/DATED AND CURRENT. NO DISTRESS OBSERVED. NO SIGNS OF PAIN OBSERVED.
--- NOTE | 2019-01-06 19:06 | MORECARE ---
CASE MANAGEMENT DISCHARGE SUMMARY PATIENT: BILL OWUSU UNIT: [id number] ADM DATE: 12/21/18 AGE: 48 : 70 SEX: F ROOM/BED: D.2302 AUTHOR: MEGHAN,DOC PHYSICIAN: REFERRING PHYSICIAN: LISANDRA ENCINAS MD DATE OF SERVICE: 01/06/19 Discharge Plan Patient Name: BILL OWUSU Facility: [facility]:[place] : 1970 Planned Disposition: Nursing Home Acute Care Facility Anticipated Discharge Date: Discharge Date: Expected LOS: Initial Reviewer: [email or web address] Initial Review Date: 12/23/2018 Generated: 01/06/19 8:06 pm Comments DCP- Discharge Planning Updated by [email or web address]: Echo Suarez on 01/05/19 6:[address] CM spoke with Brandi at [facility] in [place] regarding vent bed availability. She stated that they currently didn't have any availability that it would possibly early next week before bed becomes available. CM explained that the patient lived in [place], [place]. Brandi gave CM information on LTACH facility in [facility]. Post Acute Care [facility] [phone]. fax [phone]. CM called and spoke with Eden at facility and she stated they did have bed availability. CM faxed records after obtaining consent from family. CM will continue to follow and assist as needed with discharge planning / needs. DCP- Discharge Planning Updated by [id number]: Echo Suraez on 12/23/18 5:[address] Patient Name: BILL OWUSU Admission Status: Elective Accout number: [id number] Admission Date: 12-21-2018 : 1970 Admission Diagnosis: Attending: LISANDRA ENCINAS Current LOS: 2 Anticipated DC Date: Planned Disposition: Primary Insurance: MEDICARE A & B Discharge Planning Comments: CM attempted to meet with patient regarding discharge planning/ needs. Patient is currently sedated on ventilator. CM contacted sister Radha [phone] with whom patient lives with. Plan is for patient to return to her sisters home upon discharge. Patient's sister provides all patients care. Radha stated that patient has a wheelchair and a hospital bed at her home. Radha denies any discharge needs at this time.CM will continue to follow and assist as needed with discharge planning / needs. Prosthetic Aide: Echo Suarez DCPIA - Discharge Planning Initial Assessment Updated by [email or web address]: Echo Suarez on 12/23/18 6:20 pm * PCP ASHLEY SHAW * Pharmacy [phone] * Preadmission Environment Home with Family * ADLs Total Dependent * Equipment Hospital Bed * Other Equipment WHEELCHAIR * Verbal permission to speak to the caregivers and representatives has been obtained from the patient. N/A * Community resources currently utilized None * Additional services required to return to the preadmission environment? No * Can the patient safely return to the preadmission environment? Yes * Has this patient been hospitalized within the prior 30 days at any hospital? No Last DP export: 01/05/19 6:37 p Patient Name: BILL OWUSU Page [id number] at 1906 All edits/amendments must be made on the electronic document DICTATION DATE: 01/06/191905 BATTER MIXER: LAZARO 01/06/191905 RPT#: [id number] MS DATE: STATUS: ADM IN [facility] [address] [place] [address] END OF REPORT
--- NOTE | 2019-01-06 19:19 | MORECARE ---
CASE MANAGEMENT DISCHARGE SUMMARY PATIENT: BILL OWUSU UNIT: [id number] ADM DATE: 12/21/18 AGE: 48 : 70 SEX: F ROOM/BED: D.2302 AUTHOR: MEGHAN,DOC PHYSICIAN: REFERRING PHYSICIAN: LISANDRA ENCINAS MD DATE OF SERVICE: 01/06/19 Discharge Plan Patient Name: BILL OWUSU Facility: [facility]:[place] : 1970 Planned Disposition: [facility] Facility Anticipated Discharge Date: Discharge Date: Expected LOS: Initial Reviewer: [email or web address] Initial Review Date: 12/23/2018 Generated: 01/06/19 8:19 pm Comments DCP- Discharge Planning Updated by [email or web address]: Echo Suarez on 01/06/19 6:[address] CM spoke with Nils [facility] [place]. He requested some additional clinicals faxed . He stated that they could accept patient either or Saturday this week. CM faxed records as requested. CM will continue to follow and assist as needed with discharge planning / needs. DCP- Discharge Planning Updated by [email or web address]: Echo Suarez on 01/05/19 6:[address] CM spoke with Brandi at [facility] in [place] regarding vent bed availability. She stated that they currently didn't have any availability that it would possibly early next week before bed becomes available. CM explained that the patient lived in [place], [place]. [facility]. [facility] [phone]. fax [phone]. CM called and spoke with Eden at facility and she stated they did have bed availability. CM faxed records after obtaining consent from family. CM will continue to follow and assist as needed with discharge planning / needs. DCP- Discharge Planning Updated by [email or web address]: Echo Suarez on 12/23/18 5:[address] Patient Name: BILL OWUSU Admission Status: Elective Accout number: [id number] Admission Date: 12-21-2018 : 1970 Admission Diagnosis: Attending: LISANDRA ENCINAS Current LOS: 2 Anticipated DC Date: Planned Disposition: Primary Insurance: MEDICARE A & B Discharge Planning Comments: CM attempted to meet with patient regarding discharge planning/ needs. Patient is currently sedated on ventilator. CM contacted sister Radha [phone] with whom patient lives with. Plan is for patient to return to her sisters home upon discharge. Patient's sister provides all patients care. Radha stated that patient has a wheelchair and a hospital bed at her home. Radha denies any discharge needs at this time.CM will continue to follow and assist as needed with discharge planning / needs. Certified Pharmacy Technician: Echo Suarez DCPIA - Discharge Planning Initial Assessment Updated by [id number]: Echo Suarez on 12/23/18 6:20 pm * PCP ASHLEY SHAW * Pharmacy [phone] * Preadmission Environment Home with Family * ADLs Total Dependent * Equipment Hospital Bed * Other Equipment WHEELCHAIR * Verbal permission to speak to the caregivers and representatives has been obtained from the patient. N/A * Community resources currently utilized None * Additional services required to return to the preadmission environment? No * Can the patient safely return to the preadmission environment? Yes * Has this patient been hospitalized within the prior 30 days at any hospital? No Last DP export: 01/06/19 6:06 p Patient Name: BILL OWUSU Page 37226 at 1919 All edits/amendments must be made on the electronic document DICTATION DATE: 01/06/191918 FORGESMITH: LAZARO 01/06/191918 RPT#: [id number] DC DATE: STATUS: ADM IN [facility] [address] [place] [address] END OF REPORT
--- NOTE | 2019-01-06 21:00 | NUR ---
AWAKE AND ALERT. TRACKS THIS RN WITH EYES, MAKES EYE CONTACT. NO CHANGES OBSERVED NO DISTRESS OBSERVED. NO SIGNS OF PAIN AT PRESENT. SR UP X2
--- NOTE | 2019-01-06 23:16 | NUR ---
AWAKE AND ALERT. MAKES EYE CONTACT. REASSESSMENT PERFORMED. NO CHANGES OBSERVED FROM PREVIOUS ASSESSMENT. TURNED AND POSITIONED ONTO LFT SIDE WITH PILLOWS USED FOR POSITIONING AND COMFORT. SCDS ON AND FUNCTIONING. NO SIGNS OF PAIN OBSERVED AT PRESENT. SR UP X2
[2019-01-07] VITALS (24 sets, daily range): BP systolic 101–138; BP diastolic 62–98
--- NOTE | 2019-01-07 01:00 | NUR ---
AWAKE AND ALERT. SMILES DURING VERBAL INTERACTION. HOB UP 30 DEGREES. SR UP X2 NO DISTRESS OBSERVED. NO PAIN OBSERVED.
--- NOTE | 2019-01-07 03:00 | NUR ---
RESTING WITH EYES CLOSED, EASILY ROUSED AND ALERT. BED BATH GIVEN. TURNED AND REPOSITIONED. REASSESSMENT PERFORMED WITH NO CHANGES OBSERVED. NO SIGNS OF PAIN OBSERVED. PREVIOUS IV INFILTRATE SITE WITH NO CHANGES OBSERVED, CONTINUES DARK DISCOLORED, DRY/SCABS. STAGE 2 PRESSURE ULCERS TO BILAT BUTTOCKS CLEANED DRIED AND TREATED WITH CALMOSEPTINE CREAM WITH NO CHANGES OBSERVED. DICKERSON CATH/MARCIA CARE PERFORMED, FC SECURED TO LEFT INNER THIGH. NO DISTRESS OBSERCED. SIDE RAILS UP X2
[2019-01-07 03:20] LABS: BASOPHILS 0.5 % (0-2); EOSINOPHILS 7.6 % (0-7); HEMATOCRIT 28.6 % (36.0-48.0); HEMOGLOBIN 9.1 g/dL (12-16); IMMATURE GRANULOCYTES 1.2 % (0-5); LYMPHOCYTES 19.9 % (15-50); MCH 29.6 pg (26.0-34.0); MCHC 31.8 g/dL (31.0-37.0); MCV 93.2 fL (80.0-100.0); MEAN PLATELET VOLUME 9.3 fL (7.4-10.4); MONOCYTES 10.1 % (2-11); NEUTROPHILS 60.7 % (40-80); PLATELET COUNT 343 10x3/uL (130-400); RBC 3.07 10x6/uL (4.00-5.40); RDW 18.2 % (11.5-14.5); WBC 12.4 10x3/uL (4.8-10.8)
[2019-01-07 03:32] LABS: CALC OSMOLALITY 281 mosm/kg (275-300); CALCIUM 8.3 mg/dL (8.5-10.1); CHLORIDE - SERUM 106 mmol/L (98-107); CREATININE - SERUM 0.6 mg/dL (0.6-1.3); GLUCOSE 104 mg/dL (74-106); MAGNESIUM - SERUM 1.4 mg/dL (1.8-2.4); SODIUM 142 mmol/L (136-145); UREA NITROGEN 9 mg/dL (7-18); eGFR NON AFRICAN AMERICAN > 90 mL/min (90-120)
[2019-01-07 03:33] LABS: PHOSPHOROUS 3.4 mg/dL (2.5-4.9)
--- NOTE | 2019-01-07 05:00 | NUR ---
RESTING QUIETLY WITH EYES CLOSED, EASILY ROUSED AND ALERT. NO DISTRESS OBSERVED. NO SIGNS OF PAIN OBSERVED. SR UP X 2.
--- NOTE | 2019-01-07 09:53 | NUR ---
Nutrition follow-up: Pt with trach to vent Awake, alert and smiling PEG tube with Jevity 1.2 gregg infusing @ 60 ml/hr; pt tolerating Labs reviewed Wt: 151# RDN following.
--- NOTE | 2019-01-07 11:47 | NUR ---
0700 RESTING QUIETLY ASSESSMENT COMPLETE
--- NOTE | 2019-01-07 11:47 | NUR ---
0900 AWAKE ALERT PICC LINE DRESSING CHANGED CLEANSED PEG SITE APPLIED CLEAN SPONGE GAUZE TO INCISION SIGHT
--- NOTE | 2019-01-07 11:51 | NUR ---
1000 PLACED VENT ON SPONTANIOUS ENCOURAGED DEEP BREATHING UNABLE TO ACCESS UNDERSTANDING
--- NOTE | 2019-01-07 11:53 | NUR ---
1100 REPOSITIONED IN BED TO KEEP PATIENT OFF BACK
--- NOTE | 2019-01-07 14:12 | NUR ---
1300 PATIENT HAS TOLERATED CPAP SINCE 10AM
--- NOTE | 2019-01-07 15:42 | NUR ---
[address] WOODWARD OF D/C AND TRANSPORT TO [facility] SCHEDULED IN AM. FEPORTED HE WILL BE IN EARLY TOMORROW TO WRITE THE TRANSFER ORDERS
--- NOTE | 2019-01-07 15:45 | NUR ---
1530 PLACED BACK ON VENT, HAS TOLERATED CPAP TRIAL WELL
--- NOTE | 2019-01-07 18:41 | NUR ---
1700 MOUTH CARE PROVIDED REPOSITIONED IN BED
--- NOTE | 2019-01-07 19:00 | NUR ---
SHIFT REPORT RECEIVED. RECEIVED PT IN BED. AWAKE AND ALERT. TRACKS THIS RN AROUND ROOM WITH EYES. MAKES EYE CONTACT. NONVERBAL. 8.0 TRACH INTACT/SECURE/PATENT AND CONNECTED TO MECHANICAL VENTILATION WITH SETTINGS ORDERED. RESP EVEN AND UNLABORED.VAP PROTOCOL OBSERVED. GJ INTACT AND PATENT WITH JEVITY 1.2 INFUSING AT 60ML/HR PER PUMP. HOB UP 40 DEGREES. CONTINUES ON DROPLET ISOLATION. PREVIOUS IV INFILTRATE SITE TO RFA CONTINUES WITH DARK DISCOLORATION,SCABS/SCALY AND EDGES MARKED. STAGE 2 PRESSURE AREAS TO BILAT BUTTOCKS WITH NO CHANGE OBSERVED FROM PREVIOUS SHIFT. NO SIGNS OF PAIN/ DISTRESS OBSERVED. SR UP X 2
--- NOTE | 2019-01-07 21:00 | NUR ---
AWAKE AND ALERT. NO SIGNS OF PAIN OR DISTRESS OBSERVED. VSS. SR UP X 2
--- NOTE | 2019-01-07 21:44 | NUR ---
SPOKE WITH SISTER NEETA GRAMAJO,UPDATE GIVEN. DISCUSSED PATIENTS SCHEDULED TRANFER TO [facility] FOR TOMORROW AM. SISTER DENIES ANY QUESTIONS OR CONCERNS AT THIS TIME AND VERBALIZES UNDERSTANDING. CONSENT TO TRANSFER OBTAINED AT THIS TIME AND WITNESSED BY ELIJAH JONES
--- NOTE | 2019-01-07 23:00 | NUR ---
AWAKE AND ALERT. MAKES EYE CONTACT. MONITORS CONNECTED TO PATIENT AND ALARMS SET. TRACH INTACT/PATENT/SECURE AND CONNECTED TO VENT WITH SETTINGS ORDERED. GT INTACT AND PATENT WITH JEVITY 1.2 INFUSING @60ML/HR. REASSESSMENT COMPLETED WITH NO CHANGES OBSERVED FROM PREVIOUS ASSESSMENT. NO SIGNS OF PAIN/DISTRESS OBSERVED AT PRESENT. SR UP X2
[2019-01-08] VITALS (7 sets, daily range): BP systolic 94–137; BP diastolic 52–95
--- NOTE | 2019-01-08 01:00 | NUR ---
RESTING WITH EYES CLOSED, EASILY ROUSED AND ALERT. NO SIGNS OF PAIN OR DISTRESS OBSERVED AT PRESENT. SR UP X2
--- NOTE | 2019-01-08 03:00 | NUR ---
RESTING WITH EYES CLOSED. EASILY ROUSED AND ALERT. BED BATH, ORAL CARE, FC/MARCIA CARE, GIVEN. PRESSURE ULCERS TO BILAT BUTTOCKS CLEANED, DRIED AND TREATED WITH CALMOSEPTINE CREAM, NO DRAINAGE OR CHANGES OBSERVED. TRACH INTACT/SECURE/PATENT AND CONNECTED TO [facility] VENT WITH SETTINGS ORDERED. GT INTACT/PATENT WITH JEVITY 1.2 @60ML/HR AND H2O FLUSH @25ML/HR INFUSING PER PUMP. REASSESSMENT COMPLETED WITH NO CHANGES OBSERVED. DISPLAYS NO SIGNS OF PAIN OR DISTRESS AT PRESENT. SR UP X 2
--- NOTE | 2019-01-08 03:30 | NUR ---
TUBE FEEDING TURNED OFF AND REMOVED FROM PATIENT FOR UPCOMING FACILITY TRANSFER.
--- NOTE | 2019-01-08 05:45 | NUR ---
REPORT CALLED TO IMTIAZ JONES AT [place], [place] IN ANTICIPATION OF PATIENT TRANSFER.
--- NOTE | 2019-01-08 06:50 | NUR ---
PT LEAVING FACILITY VIA STRETCHER WITH [facility] TO BE TRANSFERRED TO [facility]. PT STABLE AT THIS TIME
--- NOTE | 2019-01-08 09:41 | OP ---
PATIENT NAME: BILL OWUSU MEDICAL RECORD: [id number] :70 LOCATION:.[facility] D.2302 ADMISSION DATE:12/21/18 SURGEON: BHAVANI MORTON MD DATE OF OPERATION: 12/30/2018 PREOPERATIVE DIAGNOSES: 1. Acute respiratory failure. 2. Methicillin-resistant pneumonia. 3. Severe pulmonary hypertension. 4. Cerebral palsy. POSTOPERATIVE DIAGNOSES: 1. Acute respiratory failure. 2. Methicillin-resistant pneumonia. 3. Severe pulmonary hypertension. 4. Cerebral palsy. PROCEDURE: An 8-Serbian percutaneous tracheostomy tube placement. SURGEON: Bhavani Morton MD REPORT OF PROCEDURE: The patient's neck was prepped and draped in sterile fashion. A bronchoscope was advanced through the indwelling endotracheal tube and this was pulled back into position just above the cricoid cartilage. A skin incision was made longitudinally over the inferior aspect of the patient's neck above the sternal notch. Under direct visualization, an Angiocath needle was used to access the patient's trachea between the first and second tracheal rings. A guidewire was advanced with ease. Over this wire was placed the dilator followed by the white Rhino dilator. We then inserted the 8-Serbian tracheostomy tube over the wire. The wire was removed and at this point, the trach was inspected and noted to be in good position with no sign of any active bleeding. We sutured the trach into place with 2-0 silks and neck tracheostomy string was applied. COMPLICATIONS: None. CONDITION: Stable. ANESTHESIA: General endotracheal. BLOOD LOSS: 30 mL. Procedure done in the ICU at the bedside. TRANSINT:[id number] Voice Confirmation ID: [id number] DOCUMENT ID: [id number] BHAVANI MORTON MD at 0941 CC: [id number] DICTATION DATE: 12/30/18 1129 CONTROL INTEGRATION ENGINEER: 12/30/18 1224 DIS IN 01/08/[address] [address]
--- NOTE | 2019-01-08 16:55 | MORECARE ---
CASE MANAGEMENT DISCHARGE SUMMARY PATIENT: BILL OWUSU UNIT: [id number] ADM DATE: 12/21/18 AGE: 48 : 70 SEX: F ROOM/BED: D.2302 AUTHOR: MEGHAN,DOC PHYSICIAN: REFERRING PHYSICIAN: LISANDRA ENCINAS MD DATE OF SERVICE: 01/08/19 Discharge Plan Patient Name: BILL OWUSU Facility: [facility]:[place] : 1970 Planned Disposition: Assisted Acute Care Facility Anticipated Discharge Date: Discharge Date: 01/08/2019 Expected LOS: Initial Reviewer: [email or web address] Initial Review Date: 12/23/2018 Generated: 01/08/19 5:54 pm Comments DCP- Discharge Planning Updated by [email or web address]: Echo Suarez on 01/08/19 3:[address] LATE ENTRY 01/07/19 @ 1930 CM CALLED AND SPOKE WITH NILS WITH [facility]. THEY ARE READY TO ACCEPT PATIENT. CM SPOKE WITH [facility] THEY WILL TRANSPORT PATIENT IN AM BE AT FACILITY FOR GROOVING [facility]HE [facility]ENDER @6:30 AM RECORDS ARE READY FOR TRANSPORT. CM NOTIFIED NURSING STAFF. CM CALLED AND SPOKE WITH NEETA OWUSU PATIENTS SISTER INFORMED OF TRANSPORT TIMES. AND IMM EXPLAINED AND SERVED VERBAL UNDERSTANDING 01/07/19 @1930. CM will continue to follow and assist as needed with discharge planning / needs. DCP- Discharge Planning Updated by [email or web address]: Echo Suarez on 01/06/19 6:[address] CM spoke with Nils at [facility] [place]. He requested some additional clinicals faxed . He stated that they could accept patient either or Saturday this week. CM faxed records as requested. CM will continue to follow and assist as needed with discharge planning / needs. DCP- Discharge Planning Updated by [email or web address]: Echo Suarez on 01/05/19 6:[address] CM spoke with Brandi at [facility] in [place] regarding vent bed availability. She stated that they currently didn't have any availability that it would possibly early next week before bed becomes available. MARY explained that the patient lived in [place], [place]. Brandi gave CM information on [facility] facility in [place]. [place] [phone]. fax [phone]. CM called and spoke with Eden at facility and she stated they did have bed availability. CM faxed records after obtaining consent from family. CM will continue to follow and assist as needed with discharge planning / needs. DCP- Discharge Planning Updated by [email or web address]: Echo Suarez on 12/23/18 5:[address] Patient Name: BILL OWUSU Admission Status: Elective Accout number: [id number] Admission Date: 12-21-2018 : 1970 Admission Diagnosis: Attending: LISANDRA ENCINAS Current LOS: 2 Anticipated DC Date: Planned Disposition: Primary Insurance: MEDICARE A & B Discharge Planning Comments: CM attempted to meet with patient regarding discharge planning/ needs. Patient is currently sedated on ventilator. CM contacted sister Neeta [phone] with whom patient lives with. Plan is for patient to return to her sisters home upon discharge. Patient's sister provides all patients care. Neeta stated that patient has a wheelchair and a hospital bed at her home. Neeta denies any discharge needs at this time.CM will continue to follow and assist as needed with discharge planning / needs. Heavy Equipment Sales Associate: Echo Suarez DCPIA - Discharge Planning Initial Assessment Updated by [email or web address]: Echo Suarez on 12/23/18 6:20 pm * PCP ASHLEY SHAW * Pharmacy [phone] * Preadmission Environment Home with Family * ADLs Total Dependent * Equipment Hospital Bed * Other Equipment WHEELCHAIR * Verbal permission to speak to the caregivers and representatives has been obtained from the patient. N/A * Community resources currently utilized None * Additional services required to return to the preadmission environment? No * Can the patient safely return to the preadmission environment? Yes * Has this patient been hospitalized within the prior 30 days at any hospital? No Coverage Notice Reviewer: [email or web address] - Echo Suarez Notice Issued Date-Time: 01/07/2019 19:30 Notice Type: IM Discharge Notice Notice Delivered To: Patient Relationship to Patient: Sister Song Writer Name: NEETA OWUSU Delivery Method: PHONE - Phone Monique Days: Prior Verbal Notification: Recipient Understood Notice: Yes Recipient Signature: Yes Med Rec Note Co-signed by Attending: Coverage Notice Comment: Last DP export: 01/06/19 6:19 p Patient Name: BILL OWUSU Page [id number] at 1655 All edits/amendments must be made on the electronic document DICTATION DATE: 01/08/191653 FLOOR PERSON: LAZARO 01/08/191653 RPT#: [id number] DC DATE:01/08/19 STATUS: DIS IN [facility] [address] [place] [address] END OF REPORT
== END 2019-01-08 06:50 | DRG 3 ==
LOC: D.ICU
PROVIDERS: Family Medicine; Internal Medicine Gastroenterology; Internal Medicine Nephrology; Internal Medicine Pulmonary Disease; ADMIT Family Medicine; ATTEND Family Medicine
PROC: 03HY32Z Insertion of Monitoring Device into Upper Artery, Percutaneous Approach (ICD-10-PCS; principal; 2018-12-21)
PROC: 5A1955Z Respiratory Ventilation, Greater than 96 Consecutive Hours (ICD-10-PCS; 2018-12-21)
PROC: 0BH17EZ Insertion of Endotracheal Airway into Trachea, Via Natural or Artificial Opening (ICD-10-PCS; 2018-12-21)
PROC: 0B928ZZ Drainage of Carina, Via Natural or Artificial Opening Endoscopic (ICD-10-PCS; 2018-12-24)
PROC: 0B948ZZ Drainage of Right Upper Lobe Bronchus, Via Natural or Artificial Opening Endoscopic (ICD-10-PCS; 2018-12-24)
PROC: 0B988ZZ Drainage of Left Upper Lobe Bronchus, Via Natural or Artificial Opening Endoscopic (ICD-10-PCS; 2018-12-24)
PROC: 0B918ZZ Drainage of Trachea, Via Natural or Artificial Opening Endoscopic (ICD-10-PCS; 2018-12-24)
PROC: 0B958ZZ Drainage of Right Middle Lobe Bronchus, Via Natural or Artificial Opening Endoscopic (ICD-10-PCS; 2018-12-24)
PROC: 0B938ZZ Drainage of Right Main Bronchus, Via Natural or Artificial Opening Endoscopic (ICD-10-PCS; 2018-12-24)
PROC: 0B978ZZ Drainage of Left Main Bronchus, Via Natural or Artificial Opening Endoscopic (ICD-10-PCS; 2018-12-24)
PROC: 0B968ZZ Drainage of Right Lower Lobe Bronchus, Via Natural or Artificial Opening Endoscopic (ICD-10-PCS; 2018-12-24)
PROC: 0B9B8ZZ Drainage of Left Lower Lobe Bronchus, Via Natural or Artificial Opening Endoscopic (ICD-10-PCS; 2018-12-24)
PROC: 0B9F8ZZ Drainage of Right Lower Lung Lobe, Via Natural or Artificial Opening Endoscopic (ICD-10-PCS; 2018-12-29)
PROC: 0B113F4 Bypass Trachea to Cutaneous with Tracheostomy Device, Percutaneous Approach (ICD-10-PCS; 2018-12-30)
PROC: 0DH63UZ Insertion of Feeding Device into Stomach, Percutaneous Approach (ICD-10-PCS; 2018-12-31)
PROC: 0BJ08ZZ Inspection of Tracheobronchial Tree, Via Natural or Artificial Opening Endoscopic (ICD-10-PCS; 2019-01-01)
PROC: 05HY33Z Insertion of Infusion Device into Upper Vein, Percutaneous Approach (ICD-10-PCS; 2019-01-05)
DX: A41.9 Sepsis, unspecified organism (principal); J15.212 Pneumonia due to Methicillin resistant Staphylococcus aureus; R65.21 Severe sepsis with septic shock; J96.01 Acute respiratory failure with hypoxia; R53.2 Functional quadriplegia; N39.0 Urinary tract infection, site not specified; T17.590A Other foreign object in bronchus causing asphyxiation, initial encounter; E87.2 Acidosis; I96 Gangrene, not elsewhere classified; J95.01 Hemorrhage from tracheostomy stoma; B96.20 Unspecified Escherichia coli [E. coli] as the cause of diseases classified elsewhere; G80.9 Cerebral palsy, unspecified; E87.6 Hypokalemia; E83.42 Hypomagnesemia; E83.39 Other disorders of phosphorus metabolism; L89.151 Pressure ulcer of sacral region, stage 1; I27.20 Pulmonary hypertension, unspecified; D64.9 Anemia, unspecified; R19.5 Other fecal abnormalities; G40.909 Epilepsy, unspecified, not intractable, without status epilepticus; L98.493 Non-pressure chronic ulcer of skin of other sites with necrosis of muscle; L89.152 Pressure ulcer of sacral region, stage 2